=== PATIENT | female | born 1980 | race Caucasian/White ===

== ENCOUNTER 2017-08-22 11:28 | Emergency (ER) | payer BC ==
--- NOTE | 2017-08-22 12:05 | EDM.PDOC ---
ED HPI GENERAL MEDICAL PROBLEM - General Chief Complaint: Cardiovascular Problem Stated Complaint: DIZZINESS/HIGH BLOOD PRESSURE Time Seen by Provider: 08/22/17 12:03 Source of Information: Reports: Patient History Limitations: Reports: No Limitations - History of Present Illness INITIAL COMMENTS - FREE TEXT/NARRATIVE: Patient is a 28-year-old female presents ED complaining of elevated blood pressure, vertigo, sinus congestion, sinus pressure, and intermittent headaches. Patient states she has a history of seasonal allergies and notes that she expresses sinus congestion, pressure, runny nose, daily. This morning upon awakening she felt dizzy with the sensation of the room spinning with movement of her head from left to right. Again this is intermittent comes and goes. She did check her blood pressure that was elevated. This prompted evaluation in the ED for the above symptoms. She states yesterday she had intermittent headache located on the right side that is since relief. This has all started since having the Mirena placed. Of note she's been having early menstrual cramping and also spotting consistent with having her period approximately one week early. There is no chance of being . Imuran I was placed August 08. She was evaluated by primary care provider earlier this month and placed on azithromycin for sinus congestion concerning for sinusitis. She had no significant improvements. Although symptoms have not worsened. She denies any hearing loss, balance issues, being , fever, chills, sore throat, chest pain, shortness of breath, palpitations, and/or focal neurological deficits. She denies heavy vaginal bleeding. PMH: depression, anemia Current medications: lexipro and iron. 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 ED EXAM, GENERAL - Physical Exam Exam: See Below Exam Limited By: No Limitations General Appearance: Alert, WD/WN, No Apparent Distress Eye Exam: Bilateral Eye: EOMI, Normal Inspection, Nystagmus (none noted), PERRL Ears: Normal External Exam, Normal Canal, Hearing Grossly Normal, Normal TMs Nose: Normal Inspection Throat/Mouth: Normal Inspection, Normal Oropharynx, Normal Voice, No Airway Compromise Head: Atraumatic, Normocephalic Neck: Normal Inspection, Supple, Non-Tender, Full Range of Motion Respiratory/Chest: No Respiratory Distress, Lungs Clear, Normal Breath Sounds, No Accessory Muscle Use Cardiovascular: Normal Peripheral Pulses, Regular Rate, Rhythm, No Murmur Peripheral Pulses: 4+: Radial (L), Radial (R) GI/Abdominal: Normal Bowel Sounds, Soft, Non-Tender, No Organomegaly, No Distention Extremities: Normal Inspection, Normal Range of Motion, Non-Tender Neurological: Alert, Oriented, CN II-XII Intact, Normal Cognition, No Motor/ Sensory Deficits, Other (No facial droop, slurred speech, tongue deviation, pronator drift, and or nystagmus. No weakness discrepancies to the upper/lower extremities. Cerebellar fx intact: finger to nose, rapid alternating movements, and heal to devi. ) Psychiatric: Normal Affect, Normal Mood Skin Exam: Warm, Dry, Intact, Normal Color Course - Vital Signs Last Recorded V/S: Last Vital Signs Temp 97.4 F 08/22/17 11:33 Pulse 94 08/22/17 11:33 Resp 18 08/22/17 11:33 BP 162/105 H 08/22/17 11:33 Pulse Ox 100 08/22/17 11:33 - Orders/Labs/Meds Meds: Medications Discontinued Medications Generic Name Dose Route Start Last Admin Trade Name Freq PRN Reason Stop Dose Admin Meclizine HCl 12.5 mg 08/22/17 12:23 08/22/17 12:40 Antivert PO 08/22/17 12:24 12.5 mg ONETIME ONE Administration Ondansetron HCl 4 mg 08/22/17 12:23 08/22/17 12:40 Zofran Odt PO 08/22/17 12:24 4 mg ONETIME ONE Administration - Re-Assessments/Exams Free Text/Narrative Re-Assessment/Exam: On examination patient had slight dizziness/room spinning sensation with movement of the head from left to right. More so associated with movement to the right. She has no nystagumas. Neurologically she is intact with no concerning findings. Of note she's had chronic congestion 2nd to seasonal allergies. I do not believe she has bacterial sinusitis. Treatment will consist of meclizine 12.5mg PO and zofran 4 mg ODT here in the E.D. Will discharge her home with a prescription for these two medications. In addition I have instructed her to take claritan D 10 mg 1 tab everyday. Start using flonase 1 spray to each nare twice a day. Nasal saline spray to each nare as needed for sinus congestion. In addition BP was elevated with admission to the ED. Patient has no diagnosis of HTN. States commonly elevated with evaluation in the clinic and ER. Followup with PCP the end of this week or first part of next week. Return to the E.D. for any new or worsening symptoms. Departure - Departure Time of Disposition: 13:00 Disposition: Home, Self-Care 01 Condition: Good Clinical Impression: Vertigo, Seasonal allergies, Sinus congestion Hypertension Qualifiers: Hypertension type: unspecified Qualified Code(s): I10 - Essential (primary) hypertension Prescriptions: Meclizine [Antivert] 25 mg PO TID PRN #15 tab PRN Reason: Dizziness Ondansetron [Zofran ODT] 4 mg PO Q6H PRN #12 tab.dis PRN Reason: Nausea/Vomiting Instructions: Vertigo, [id number], Dizziness Forms: ED Department Discharge Additional Instructions: Take claritan D 10 mg 1 tab everyday. Start using flonase 1 spray to each nare twice a day. Nasal saline spray to each nare as needed for sinus congestion. In addition BP was elevated with admission to the E/D. Followup with PCP the end of this week or first part of next week for reevaluation. Call and make an appt. Take meclizine 12.5 to 25mg TID as needed for vertigo. Do not drive while taking the meclizine due to sedative side effects. Return to the E.D. for any new or worsening symptoms. Check your blood pressure every other day at different times during the day. Allow yourself approximately 15 minutes to relax prior to taking. Do not take if in pain, with increased anxiety, or just had exercised. Keep a log with the blood pressure readings. Take your blood pressure machine and log with you to your next appointment with PCP to ensure blood pressure machine is calibrated appropriately.
[2017-08-22] MEDS ORDERED: Ondansetron 4 MG Tab.DIS PO ONE (12:23)
[2017-08-22] MEDS ORDERED: Meclizine 12.5 MG Tab PO ONE (12:23)
== END 2017-08-22 13:30 | disposition home or self-care (01) ==
LOC: JD.ED 11:28
DX: R42 Dizziness and giddiness (principal); J30.2 Other seasonal allergic rhinitis; I10 Essential (primary) hypertension; R09.89 Other specified symptoms and signs involving the circulatory and respiratory systems; Z88.2 Allergy status to sulfonamides; Z79.899 Other long term (current) drug therapy
CPT/HCPCS: 99284; A9270; 99283

== ENCOUNTER 2018-08-22 18:25 | Emergency (ER) | payer BC ==
--- NOTE | 2018-08-22 19:51 | EDM.PDOC ---
ED HPI GENERAL MEDICAL PROBLEM <Darleen Fairbanks - Last Filed: 08/23/18 10:38> - General Source of Information: Reports: Patient History Limitations: Reports: No Limitations - History of Present Illness Onset: Today Onset Date: 08/22/18 Onset Time: 17:45 Duration: Hour(s):, Other (Not aware of any bleeding per vagina since gush of blood occurred at about 1745 hrs. tonight.) Location: Reports: Other (Gush of blood per vagina at about 1745 hrs. followed by mild lower abdominal cramping pain.) Quality: Reports: Other (Superpubic tenderness and cramping) Severity: Mild Improves with: Reports: None Worsens with: Reports: None Context: Denies: Activity, Exercise, Lifting, Sick Contact, Trauma, Other Associated Symptoms: Reports: No Other Symptoms, Other. 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 tonight. Patient is known to be with estimated last menstrual period to be around May 24. However 2 ultrasounds have been performed in the month of June that identified a gestation to be younger than that. Present she is estimated to be 10 weeks . She reports that she had mild suprapubic tenderness and urinary frequency on Tuesday, August 19. She has had spotting during the twice 30 July 29 and August 05. The second time she realized constipation seems to be part of the cause of the problem. Patient has not yet seen Dr. Víctor rivas but has an appointment scheduled for i.e. 2 days time. She does have mild suprapubic cramping at this time. Ultrasound on July 17 suggested possible empty gestational sac with a aguillon also evident. This suggested she may have had a twin gestation ,one of which may have failed. Patient reports spotting during with her 10-year-old female at home. She's had 2 male children since that time. All vaginal deliveries. 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: Reports: : 4 Para: 3 (All 3 were vaginal deliveries without complication) Other ASSEMBLER ADJUSTER History: Musculoskeletal History: Reports: None Neurological History: Reports: Migraines Psychiatric History: Reports: Depression Endocrine/Metabolic History: Reports: None Hematologic History: Reports: Anemia Immunologic History: Reports: None Oncologic (Cancer) History: Reports: None Dermatologic History: Reports: Other (See Below) Other Dermatologic History: acne - Infectious Disease History Infectious Disease History: Reports: None - Past Surgical History HEENT Surgical History: Reports: Adenoidectomy, Oral Surgery, Tonsillectomy <Mj Alvarado - Last Filed: 08/23/18 19:30> Social & Family History - Family History Family Medical History: Noncontributory Cardiac: Reports: High Cholesterol, Hypertension, Other (See Below) Other Cardiac Family History: PAD Oncologic: Reports: Other (See Below) Other Oncologic Family History: Melanoma - Tobacco Use Smoking Status *Q: Never Smoker - Caffeine Use Caffeine Use: Reports: Coffee, Soda - Recreational Drug Use Recreational Drug Use: No - Living Situation & Occupation Living situation: Reports: Occupation: Employed <Mj Alvarado - Last Filed: 08/23/18 19:30> ED ROS GENERAL - Review of Systems Review Of Systems: See Below Constitutional: Reports: Fatigue (From .). Denies: Fever, Chills, Malaise HEENT: Reports: No Symptoms Respiratory: Reports: No Symptoms Cardiovascular: Reports: No Symptoms Endocrine: Reports: Fatigue GI/Abdominal: Reports: Constipation (Acid constipation issues during the .) : Reports: Other (Has had some spotting per vagina July 29 and August 05. Heavy gush of blood per vagina tonight. Known to be with estimated gestational age of 10 weeks by previous ultrasounds.) Musculoskeletal: Reports: No Symptoms Skin: Reports: No Symptoms Neurological: Reports: No Symptoms Psychiatric: Reports: No Symptoms Hematologic/Lymphatic: Reports: No Symptoms Immunologic: Reports: No Symptoms <Mj Alvarado - Last Filed: 08/23/18 19:30> ED EXAM - Physical Exam Exam: See Below Exam Limited By: No Limitations General Appearance: Alert, WD/WN, Anxious (Mildly anxious), Mild Distress Eye Exam: Bilateral Eye: Normal Inspection Respiratory/Chest: No Respiratory Distress, Lungs Clear, Normal Breath Sounds, No Accessory Muscle Use Cardiovascular: Normal Peripheral Pulses, Regular Rate, Rhythm, No Edema, No Gallop, No Murmur, No Rub GI/Abdominal Exam: Normal Bowel Sounds, Soft, No Organomegaly, Pelvis Stable, Tender (Mild tenderness to palpation suprapubically. Uterine fundus is not palpable abdominally.), Other (Mildly obese.) (Female) Exam: Normal External Exam, Enlarged Uterus, Uterine Tenderness ( Mild uterine tenderness appreciated anteriorly.), Other (Patient has a mild ectropion of the cervix particularly noted from 9:00 to 3 o'clock position. Excess water was slight oozing of blood per cervical loss. Bimanual examination confirms a cervical os to be closed and the uterus does feel approximate 10 weeks gestation.). No: Cervical Dilatation Back Exam: Normal Inspection, Full Range of Motion. No: CVA Tenderness (L), CVA Tenderness (R) Extremities: Normal Inspection, Normal Range of Motion, Non-Tender, No Pedal Edema Neurological: Alert, Oriented, CN II-XII Intact, Normal Cognition Psychiatric: Normal Mood, Anxious (Mildly anxious.) Skin Exam: Warm, Dry, Intact, Normal Color, No Rash <Mj Alvarado - Last Filed: 08/23/18 19:30> Course <Darleen Fairbanks - Last Filed: 08/23/18 10:38> <Mj Alvarado - Last Filed: 08/23/18 19:30> - Vital Signs Last Recorded V/S: Last Vital Signs Temp 37.1 C 08/22/18 18:51 Pulse 95 08/22/18 18:51 Resp 16 08/22/18 18:51 BP 170/97 H 08/22/18 18:51 Pulse Ox 99 08/22/18 18:51 - Orders/Labs/Meds Labs: Laboratory Tests 08/22/18 08/22/18 08/22/18 Range/Units 20:01 20:01 20:01 WBC 14.73 H (3.98-10.04) K/mm3 RBC 4.74 (3.98-5.22) M/mm3 Hgb 12.0 (11.2-15.7) gm/L Hct 36.8 (34.1-44.9) % MCV 77.6 L (79.4-94.8) fl MCH 25.3 L (25.6-32.2) pg MCHC 32.6 (32.2-35.5) g/dl RDW Std Deviation 51.4 H (36.4-46.3) fL Plt Count 325 (182-369) K/mm3 MPV 10.6 (9.4-12.3) fl Neutrophils % (Manual) 69 H (40-60) % Band Neutrophils % 0 (0-10) % Lymphocytes % (Manual) 25 (20-40) % Atypical Lymphs % 0 % Monocytes % (Manual) 4 (2-10) % Eosinophils % (Manual) 2 (0.7-5.8) % Basophils % (Manual) 0 L (0.1-1.2) Toxic Granulation Few Platelet Estimate Adequate Plt Morphology Comment Normal Anisocytosis 2+ moderate RBC Morph Comment Not Reportable Sodium 138 (136-145) mEq/L Potassium 3.5 (3.5-5.1) mEq/L Chloride 102 (98-107) mEq/L Carbon Dioxide 24 (21-32) mEq/L Anion Gap 15.5 H (5-15) BUN 8 (7-18) mg/dL Creatinine 0.5 L (0.55-1.02) mg/dL Est Cr Clr Drug Dosing 146.90 mL/min Estimated GFR (MDRD) > 60 (>60) mL/min BUN/Creatinine Ratio 16.0 (14-18) Glucose 108 H (74-106) mg/dL Calcium 10.0 (8.5-10.1) mg/dL Total Bilirubin 0.3 (0.2-1.0) mg/dL AST 11 L (15-37) U/L ALT 14 (14-59) U/L Alkaline Phosphatase 66 (46-116) U/L Total Protein 6.9 (6.4-8.2) g/dl Albumin 3.0 L (3.4-5.0) g/dl Globulin 3.9 gm/dL Albumin/Globulin Ratio 0.8 L (1-2) HCG, Quant 015102.0 mIU/mL Urine Color (Yellow) Urine Appearance (Clear) Urine pH (5.0-8.0) Ur Specific [place] (1.005-1.030) Urine Protein (Negative) Urine Glucose (UA) (Negative) Urine Ketones (Negative) Urine Occult Blood (Negative) Urine Nitrite (Negative) Urine Bilirubin (Negative) Urine Urobilinogen (0.2-1.0) Ur Leukocyte Esterase (Negative) Urine RBC (0-5) /hpf Urine WBC (0-5) /hpf Ur Squamous Epith Cells (0-5) /hpf Urine Bacteria (FEW) /hpf Urine Mucus (FEW) /hpf Blood Type A POSITIVE Gel Antibody Screen Negative 08/22/18 Range/Units 20:10 WBC (3.98-10.04) K/mm3 RBC (3.98-5.22) M/mm3 Hgb (11.2-15.7) gm/L Hct (34.1-44.9) % MCV (79.4-94.8) fl MCH (25.6-32.2) pg MCHC (32.2-35.5) g/dl RDW Std Deviation (36.4-46.3) fL Plt Count (182-369) K/mm3 MPV (9.4-12.3) fl Neutrophils % (Manual) (40-60) % Band Neutrophils % (0-10) % Lymphocytes % (Manual) (20-40) % Atypical Lymphs % % Monocytes % (Manual) (2-10) % Eosinophils % (Manual) (0.7-5.8) % Basophils % (Manual) (0.1-1.2) Toxic Granulation Platelet Estimate Plt Morphology Comment Anisocytosis RBC Morph Comment Sodium (136-145) mEq/L Potassium (3.5-5.1) mEq/L Chloride (98-107) mEq/L Carbon Dioxide (21-32) mEq/L Anion Gap (5-15) BUN (7-18) mg/dL Creatinine (0.55-1.02) mg/dL Est Cr Clr Drug Dosing mL/min Estimated GFR (MDRD) (>60) mL/min BUN/Creatinine Ratio (14-18) Glucose (74-106) mg/dL Calcium (8.5-10.1) mg/dL Total Bilirubin (0.2-1.0) mg/dL AST (15-37) U/L ALT (14-59) U/L Alkaline Phosphatase (46-116) U/L Total Protein (6.4-8.2) g/dl Albumin (3.4-5.0) g/dl Globulin gm/dL Albumin/Globulin Ratio (1-2) HCG, Quant mIU/mL Urine Color Light yellow (Yellow) Urine Appearance Clear (Clear) Urine pH 6.5 (5.0-8.0) Ur Specific [place] 1.025 (1.005-1.030) Urine Protein Negative (Negative) Urine Glucose (UA) Negative (Negative) Urine Ketones Negative (Negative) Urine Occult Blood 2+ H (Negative) Urine Nitrite Negative (Negative) Urine Bilirubin Negative (Negative) Urine Urobilinogen 0.2 (0.2-1.0) Ur Leukocyte Esterase Negative (Negative) Urine RBC 5-10 H (0-5) /hpf Urine WBC Not seen (0-5) /hpf Ur Squamous Epith Cells 0-5 (0-5) /hpf Urine Bacteria Not seen (FEW) /hpf Urine Mucus Not seen (FEW) /hpf Blood Type Gel Antibody Screen - Radiology Interpretation Free Text/Narrative:: 37-year-old female is as to the ED after expressing a gush of blood per vagina suddenly about 1745 hrs. tonight. She is known to be approximately 10 weeks according to ultrasounds done in the past month of June. Patient is 4 para 3 with all 3 normal vaginal deliveries. And has had some intermittent spotting during this July 29 and August 05. Complicated by some constipation issues. She has diffuse lower abdominal discomfort suprapubically since Tuesday, August 19. Perhaps slightly increased urinary frequency but no dysuria. Still having some problems with constipation. Benign abdominal examination although she is tender suprapubically on exam. Plan urinalysis empty her bladder. I will inspect the cervix with speculum and performed bimanual examination showed the cervix is closed. She will have routine labs performed including quantitative beta-hCG. Also type and screen. Transvaginal ultrasound will be carried out. (Mj Alvarado) - Re-Assessments/Exams Free Text/Narrative Re-Assessment/Exam: 08/22/18 20:20: Speculum exam shows a mild ectropion of the cervix at the 9:00 to 3 o'clock position. There is no bleeding however from this area and I swabbed the cervix. There is slight oozing of older type blood per cervical os. Bimanual exam reveals the cervical os is closed and the uterus does feel 10 weeks in size. Plan ultrasound to be done to confirm viability. Care will be transferred to ISAIAS Fairbanks as I am not going off shift. 08/22/18 20:41 Lab work reveals an elevated white count at 14.73. Differential is pending. Hemoglobin is 12.0 with hematocrit of 36.8. MCV is a little on the low side at 77.6 suggesting some iron deficiency. Platelet count 325,000. Sodium 138 with potassium low-normal at 3.5. Chloride 102 with a bicarbonate 24. And a gap is 15.5. BUN is 8 with a creatinine of 0.5. Assessment EGFR is greater than 60. Glucose is 108. Calcium is 10.0. Liver function normal. Total protein slightly low at 6.9 with an albumin fraction low at 3.0. 08/22/18 20:20: Quantitative beta-hCG is greater than 111,000 work should be. Blood type is a positive with no antibodies. The ultrasound on my assessment reveals a aguillon fetus with heart rate of 171 bpm. [place]-rump rump length and head circumference correlates with 12 weeks 0 days. This would make her due date March 06, 2019. There does seem to be a empty gestational sac in the uterus about with a blighted ovum and possibility of a twin gestation. There appears to be a fairly large fibroid that does encroach upon the intrauterine cavity but no signs of bleeding around this. Will have Darleen Fairbanks -- ISAIAS follow up with patient after radiologist reads the U/S. I am leaving the department as it is change of shift. (Mj Alvarado) Free Text/Narrative Re-Assessment/Exam: 08/22/18 22:12 First trimester obstetrical ultrasound: Multiple real-time images were obtained transvaginally. Comparison: No previous study is available. Dates: Current ultrasound: CARMELLA 03/06/19, gestational age 12 weeks 0 days Single intrauterine gestation is seen. Embryo and yolk sac are seen. Small cystic area is seen either due to resolving nonviable second gestational sac versus small subchorionic hemorrhage. Uterine fibroid is seen measuring 3.2 x 2.8 x 2.5 cm. Left maternal ovary shows a simple cyst measuring up to 2.8 cm most likely representing corpus luteum cyst. Right ovary shows a small hypoechoic area most likely due to small collapsing hemorrhagic cyst measuring 1.7 cm. Measurements: [place]-rump length: 5.25 cm - 12 weeks 0 days Heart rate: 171 BPM Impression: 1. Single intrauterine gestation. Findings which are most likely incidental as described above. 2. No etiology is seen for the patient's bleeding. Reviewed the ultrasound results with the patient. Her blood type is A+. We will discharge her home tonight. Follow-up with OB as planned. Please return to the ER symptoms change or worsen. (Darleen Fairbanks) Departure - Departure Time of Disposition: 22:13 Condition: Good - Discharge Information *PRESCRIPTION DRUG MONITORING PROGRAM REVIEWED*: No *COPY OF PRESCRIPTION DRUG MONITORING REPORT IN PATIENT NUNU: No <Darleen Fairbanks - Last Filed: 08/23/18 10:38> <Mj Alvarado - Last Filed: 08/23/18 19:30> - Departure Disposition: Home, Self-Care 01 Clinical Impression: Threatened , - Discharge Information Instructions: Threatened Miscarriage, [id number] Referrals: Emma Decker MD [Primary Care Provider] - Dulce Renee MD [Physician] - Forms: ED Department Discharge Additional Instructions: Nothing vaginally until cleared by all the, no intercourse. Follow-up with your OB as planned. Make sure you are drinking plenty of fluids. [id number] Tylenol as needed for pain. Please return to the ER for symptoms change or worsen. In particular if you are soaking through more than 1 pad an hour, feeling lightheaded or any passing out.
--- NOTE | 2018-08-22 21:19 | US ---
First trimester obstetrical ultrasound: Multiple real-time images were obtained transvaginally. Comparison: No previous study is available. Dates: Current ultrasound: CARMELLA 03/06/19, gestational age 12 weeks 0 days Single intrauterine gestation is seen. Embryo and yolk sac are seen. Small cystic area is seen either due to resolving nonviable second gestational sac versus small subchorionic hemorrhage. Uterine fibroid is seen measuring 3.2 x 2.8 x 2.5 cm. Left maternal ovary shows a simple cyst measuring up to 2.8 cm most likely representing corpus luteum cyst. Right ovary shows a small hypoechoic area most likely due to small collapsing hemorrhagic cyst measuring 1.7 cm. Measurements: [place]-rump length: 5.25 cm - 12 weeks 0 days Heart rate: 171 BPM Impression: 1. Single intrauterine gestation. Findings which are most likely incidental as described above. 2. No etiology is seen for the patient's bleeding. Diagnostic code #2
== END 2018-08-22 22:21 | disposition home or self-care (01) ==
LOC: JD.ED 18:25
DX: O20.0 Threatened abortion (principal); O10.911 Unspecified pre-existing hypertension complicating pregnancy, first trimester; O99.511 Diseases of the respiratory system complicating pregnancy, first trimester; J45.909 Unspecified asthma, uncomplicated; Z3A.10 10 weeks gestation of pregnancy; Z88.2 Allergy status to sulfonamides; Z79.899 Other long term (current) drug therapy
CPT/HCPCS: 36415; 76817; 76817-26; 80053; 81001; 84702; 85007; 85027; 86850; 86900; 86901; 99283; 99284-25

== ENCOUNTER 2019-02-17 14:00 | Inpatient (IN) | payer BC ==
[2019-02-17] MEDS ORDERED: Lactated Ringers 1,000 ML IV ONE (16:35)
--- NOTE | 2019-02-17 19:57 | PCM.LDHP ---
L&D History of Present Illness - General Date of Service: 02/17/19 Admit Problem/Dx: Patient Status Order with Admit Dx/Problem 02/17/19 14:15 Patient Status [ADT] Routine Admission Diagnosis/Problem Admission Diagnosis/Problem Source of Information: Patient History Limitations: Reports: No Limitations - History of Present Illness Introduction:: Sophie Reyes is a 38-year-old -0-0-3 at 36 weeks 5 days (CAR[facility] 03/12/2019) by 7 -week ultrasound who is undergoing medically indicated induction of labor due to low biophysical profile score of 4/10 with points taken off for movement, tone and breathing. There was a normal ERNIE of 11.07 cm. Patient had reported that she was not feeling baby move very much throughout the day today. She had to come in for IV gentamicin due to multidrug-resistant urinary tract infection. Today was her last day of antibiotics. She denied any headaches, vision changes or epigastric pain. She had been monitored by her regular physician, Dr. Renee, for her blood pressures as an outpatient and was diagnosed with gestational hypertension. She was scheduled for induction of labor on 02/19/2019 due to her gestational hypertension. She reports that she has been having some irregular contractions throughout the day today but denies any regularity or significant pain with the contractions. Denies any leaking of fluid or vaginal bleeding. While evaluated on labor and delivery she was noted to have elevated blood pressures and had labs performed that showed increased urine protein/creatinine ratio of 3.3 which would be consistent with preeclampsia without severe features. The remainder of her labs were normal. Associated Symptoms: Denies: vaginal bleeding, vaginal discharge, vaginal fluid Present Illness Comments:: Sophie Reyes is a 38 year old -0-0-3 at 36 weeks 5 days by a 7-week ultrasound who presented for IV infusion of gentamicin for treatment of her urinary tract infection as was recommended by her regular provider, Dr. Renee. On presentation to labor and delivery she noted that she was not feeling the baby move much throughout the day today and on monitoring was noted to have several decelerations with 1 suspected late deceleration. She did have a reactive NST despite these decelerations. She underwent biophysical profile because of the decelerations that she was having for additional reassurance of wellbeing and was noted to have a full biophysical profile score of 4/10 with points being taken off for lack of movement, tone and breathing. She had a normal ERNIE of 11.07 cm. Decision was made to proceed with induction of labor and she agreed to this. Patient had routine care with Dr. Renee. She was diagnosed with gestational hypertension at 35 weeks gestational age. She was diagnosed with a urinary tract infection requiring IV antibiotics on 02/09/2019 she received betamethasone for lung maturity on 02/15/2019 and 02/16/2019. Her has been complicated by: * Gestational hypertension diagnosed at 35 weeks gestational age * Urinary tract infection requiring IV antibiotics for treatment * History of depression and was on Lexapro prior to . 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/08/2005, at 39 weeks 4 days, weight 7 pounds 1 ounce, epidural for anesthesia, no complications G2: 05/24/2008, at 39 weeks 3 days, weight 8 pounds 1 ounce, epidural for anesthesia, no complications G3: 04/28/2011, at 39 weeks 5 days, weight 7 pounds 13 ounces, no complications G4: Current labs Blood type: A+ Antibody screen: Negative First trimester hematocrit/hemoglobin: 40.6%/13.4 on 08/24/2018 Platelets: 311 on 08/24/2018 Rubella status: Immune Hepatitis B surface antigen: Negative RPR: Negative HIV: Negative One hour glucose tolerance test: 122 Second trimester hemoglobin: 11.6 on 11/21/2018 Platelets: 284 11/21/2018 GBS status: Negative - Related Data Allergies/Adverse Reactions: Allergies Allergy/AdvReac Type Severity Reaction Status Date / Time Sulfa (Sulfonamide AdvReac Stomach Verified 02/15/19 18:41 Antibiotics) Upset Home Medications: Home Meds Montelukast [Singulair] 10 mg PO DAILY 08/22/18 [History] Pnv No.103/Folic/Om3s/Fish Oil [ Gummies] 2 tab PO DAILY 08/22/18 [ History] Lansoprazole [Prevacid] 15 mg PO DAILY 02/15/19 [History] Past Medical History HEENT History: Reports: Impaired Vision Cardiovascular History: Reports: Hypertension Respiratory History: Reports: Asthma Gastrointestinal History: Reports: None Genitourinary History: Reports: UTI, Recurrent 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: : 4 Para: 3 Other OB/BYN History: Musculoskeletal History: Reports: None Neurological History: Reports: Migraines Psychiatric History: Reports: Depression Endocrine/Metabolic History: Reports: None Hematologic History: Reports: Anemia Immunologic History: Reports: None Oncologic (Cancer) History: Reports: None Dermatologic History: Reports: Other (See Below) Other Dermatologic History: acne - Infectious Disease History Infectious Disease History: Reports: None - Past Surgical History HEENT Surgical History: Reports: Adenoidectomy, Oral Surgery, Tonsillectomy Social & Family History - Family History Family Medical History: Noncontributory Cardiac: Reports: High Cholesterol, Hypertension, Other (See Below) Other Cardiac Family History: PAD Oncologic: Reports: Other (See Below) Other Oncologic Family History: Melanoma - Tobacco Use Smoking Status *Q: Never Smoker Tobacco Use Within Last Twelve Months: No - Tobacco Core Measures Tobacco Use/Smoking Within Last 30 Days: No Smokeless Tobacco Use in Last 30 Days: No - Caffeine Use Caffeine Use: Reports: Coffee, Soda - Alcohol Use Alcohol Use History: No - Recreational Drug Use Recreational Drug Use: No Drug Use in Last 12 Months: No - Living Situation & Occupation Living situation: Reports: , with Significant Other, with Family Occupation: Employed H&P Review of Systems - Review of Systems: Review Of Systems: See Below General: Reports: Chills. Denies: Fever, Malaise, Weakness, Fatigue HEENT: Denies: Eye Pain, Headaches, Post Nasal Drip, Sinus Congestion, Sore Throat, Visual Changes Pulmonary: Denies: Shortness of Breath, Wheezing, Pleuritic Chest Pain, Cough Cardiovascular: Denies: Chest Pain, Palpitations, Dyspnea on Exertion, Orthopnea Gastrointestinal: Reports: Constipation. Denies: Abdominal Pain, Diarrhea, Nausea, Vomiting Genitourinary: Denies: Dysuria, Frequency, Burning, Pain, Urgency Musculoskeletal: Reports: Back Pain (and hip pain of ) Skin: Denies: Rash, Lesions Psychiatric: Denies: Depression, Anxiety Neurological: Denies: Headache L&D Exam - Exam Exam: See Below - Vital Signs Vital Signs: Last Vital Signs Temp 36.3 C 02/17/19 14:35 Pulse 92 02/17/19 17:01 Resp 16 02/17/19 14:35 BP 156/89 H 02/17/19 17:01 Pulse Ox 100 02/17/19 14:35 Weight: 112.037 kg - OB Specific Contraction Duration (sec): 60-120 Contraction Frequency (min): Irregular Contraction Intensity: Mild Movement: Active Heart Tones: Present Heart Tones per Min: 150 (+15 x 15 accelerations, intermittent late decelerations) Heart Rate (FHR) Variability: Moderate (6-25 bmp) Presentation: Vertex Estimated Weight: 7 pounds 3 ounces by ultrasound - Fraire Score Fraire Score Cervix Position: Anterior Fraire Score Consistency: Medium Fraire Score Effacement: 31-50% (50%) Fraire Score Dilation: 3-4 cm (3 cm) Fraire Score 's Station: -3 (-4) Frarie Score Total: 6 - Exam General: Alert, Oriented HEENT: Conjunctiva Clear, EOMI Neck: Supple, Trachea Midline Lungs: Clear to Auscultation, Normal Respiratory Effort Cardiovascular: Regular Rate, Regular Rhythm GI/Abdominal Exam: Soft, Non-Tender, No Distention, Other (Gravid). No: Guarding, Rigid, Rebound Genitourinary: Normal external exam, Other (16 Haitian Ibarra bulb placed through the cervix manually and filled with 50 mL of sterile saline. Mother and tolerated procedure without difficulty.) Extremities: Normal Inspection, Non-Tender, Pedal Edema (1+ in bilateral lower extremities to knees) Skin: Warm, Dry, Intact Psychiatric: Alert, Normal Affect, Normal Mood - Patient Data Lab Results Last 24 hrs: Laboratory Results - last 24 hr 02/17/19 02/17/19 02/17/19 Range/Units 16:20 16:20 18:15 WBC 15.97 H (3.98-10.04) K/mm3 RBC 3.97 L (3.98-5.22) M/mm3 Hgb 10.9 L (11.2-15.7) gm/dl Hct 33.7 L (34.1-44.9) % MCV 84.9 D (79.4-94.8) fl MCH 27.5 (25.6-32.2) pg MCHC 32.3 (32.2-35.5) g/dl RDW Std Deviation 44.0 (36.4-46.3) fL Plt Count 320 (182-369) K/mm3 MPV 11.2 (9.4-12.3) fl Neut % (Auto) 71.7 H (34.0-71.1) % Lymph % (Auto) 17.7 L (19.3-51.7) % [place] % (Auto) 9.3 (4.7-12.5) % Eos % (Auto) 0.1 L (0.7-5.8) Baso % (Auto) 0.1 (0.1-1.2) % Neut # (Auto) 11.46 H (1.56-6.13) K/mm3 Lymph # (Auto) 2.82 (1.18-3.74) K/mm3 [place] # (Auto) 1.49 H (0.24-0.36) K/mm3 Eos # (Auto) 0.01 L (0.04-0.36) K/mm3 Baso # (Auto) 0.02 (0.01-0.08) K/mm3 Manual Slide Review Abnormal smear Sodium 143 (136-145) mEq/L Potassium 3.1 L (3.5-5.1) mEq/L Chloride 105 (98-107) mEq/L Carbon Dioxide 25 (21-32) mEq/L Anion Gap 16.1 H (5-15) BUN 13 (7-18) mg/dL Creatinine 0.6 (0.55-1.02) mg/dL Est Cr Clr Drug Dosing 121.20 mL/min Estimated GFR (MDRD) > 60 (>60) mL/min BUN/Creatinine Ratio 21.7 H (14-18) Glucose 117 H (74-106) mg/dL Calcium 8.7 (8.5-10.1) mg/dL Total Bilirubin 0.5 (0.2-1.0) mg/dL AST 13 L (15-37) U/L ALT 15 (14-59) U/L Alkaline Phosphatase 118 H (46-116) U/L Total Protein 6.5 (6.4-8.2) g/dl Albumin 2.8 L (3.4-5.0) g/dl Globulin 3.7 gm/dL Albumin/Globulin Ratio 0.8 L (1-2) Ur Random Creatinine 95.8 (30.0-125.0) mg/dL U Random Total Protein 357.6 H (0.0-11.8) mg/dL Protein/Creatinin Ratio 3732.8 H (0-149) mg/g Result Diagrams: 02/17/19 16:20 02/17/19 16:20 - Problem List (1) 36 weeks gestation of SNOMED Code(s): 36697947 ICD Code: Z3A.36 - 36 WEEKS GESTATION OF Status: Acute Current Visit: Yes (2) Preeclampsia SNOMED Code(s): 783223983 ICD Code: O14.90 - UNSPECIFIED PRE-ECLAMPSIA, UNSPECIFIED TRIMESTER Status : Acute Current Visit: Yes (3) Non-reassuring heart rate with late deceleration SNOMED Code(s): 802144049, 892770864 ICD Code: O36.8390 - MATERN CARE FOR ABNLT FETL HRT RATE OR RHYM, UNSP TRI, UNSP Status: Acute Current Visit: Yes (4) Obesity SNOMED Code(s): 637523771, 307939107 ICD Code: E66.9 - OBESITY, UNSPECIFIED Status: Acute Current Visit: Yes (5) Advanced maternal age in multigravida SNOMED Code(s): 351810318 ICD Code: O09.529 - SUPERVISION OF ELDERLY MULTIGRAVIDA, UNSPECIFIED TRIMESTER Status: Acute Current Visit: Yes Problem List Initiated/Reviewed/Updated: Yes Orders Last 24hrs: Active Orders 24 hr Category Date Time Status Patient Status [ADT] Routine ADT 02/17/19 14:15 Active Non Stress Test [RC] PER UNIT ROUTINE Care 02/17/19 14:35 Active Vital Signs [RC] PER UNIT ROUTINE Care 02/17/19 14:35 Active Regular Diet [DIET] Diet 02/17/19 Dinner Active BPP wo NST [US] Routine Exams 02/17/19 16:34 Taken Gentamicin 410 mg Med 02/17/19 15:00 Active Sodium Chloride 0.9% [Normal Saline] 100 ml IV Q24H Pharmacy to Dose - Gentamicin Med 02/17/19 14:45 Pending 1 dose .XX ASDIRECTED Resuscitation Status Routine Resus Stat 02/17/19 14:35 Ordered Medication Orders Gentamicin Sulfate (Pharmacy To Dose - Gentamicin) 1 dose .XX ASDIRECTED [facility] Gentamicin Sulfate 410 mg/ (Sodium Chloride) 110.25 mls @ 220.5 mls/hr IV Q24H [facility] Last Admin: 02/17/19 15:47 Dose: 220.5 mls/hr Assessment/Plan Comment:: Refer to observation for medically indicated induction of labor for low biophysical profile score of 4/10 in the setting of preeclampsia without severe features Patient had placement of 16 Haitian Ibarra bulb without difficulty filled with 50 mL of sterile saline. Start Pitocin for induction of labor Continuous monitoring Place IV and have Lactated Ringer's at 125 ml/hr May have small amounts of regular diet Activity as tolerated May have epidural as desired Plans to breast-feed after delivery Close monitoring of her blood pressures for severe range blood pressures that may necessitate treatment. Patient may potentially develop other signs or symptoms of severe features of preeclampsia which would necessitate treatment with magnesium. Anticipate vaginal delivery unless otherwise indicated Shravan Hill MD 9:52 PM 02/17/2019
[2019-02-17] MEDS ORDERED: Nalbuphine 10 MG/1 ML Vial IVPUSH PRN (20:24)
[2019-02-17] MEDS ORDERED: Oxytocin/Lactated Ringers 10 UNIT/1,000 ML BAG IV SCH ×2 (20:30)
[2019-02-17] MEDS: Lactated Ringers 1,000 ML IV SCH ×2 (20:50→22:59)
[2019-02-17] MEDS: Pantoprazole 40 MG Tab.CR PO SCH (21:51)
[2019-02-17] MEDS: Montelukast 10 MG Tab PO SCH (21:51)
[2019-02-18] MEDS ORDERED: Bupivacaine 0.25% 10 ML SDV ONE
[2019-02-18] MEDS: Acetaminophen 325 MG Tab PO PRN ×2 (02:22→11:23)
[2019-02-18] MEDS: Lactated Ringers 1,000 ML IV SCH ×4 (02:23→21:02)
[2019-02-18] MEDS ORDERED: fentaNYL/Bupivacaine/NS 2 MCG-0.125% 250 ML EPIDUR PRN (02:55)
[2019-02-18] MEDS ORDERED: fentaNYL 100 MCG/2 ML SDV EPIDUR PRN (02:55)
[2019-02-18] MEDS ORDERED: ePHEDrine 50 MG/ML SDV IVPUSH PRN (02:55)
[2019-02-18] MEDS ORDERED: diphenhydrAMINE 50 MG/ML SDV IVPUSH PRN (02:55)
--- NOTE | 2019-02-18 04:14 | PCM.PREANE ---
Preanesthetic Assessment - Anesthesia/Transfusion/Family Hx Anesthesia History: Prior Anesthesia Without Reaction Family History of Anesthesia Reaction: No Transfusion History: No Prior Transfusion(s) Additional History: Post Dural Puncture Headache with her last epidural - Review of Systems General: Fatigue Pulmonary: No Symptoms Cardiovascular: No Symptoms (Hypertension) Gastrointestinal: Other (GERd) Neurological: Headache, Other (Back pain into hips) Other: Reports: None - Physical Assessment Vital Signs: Last Vital Signs Temp 36.3 C 02/17/19 14:35 Pulse 92 02/17/19 17:01 Resp 16 02/17/19 14:35 BP 156/89 H 02/17/19 17:01 Pulse Ox 100 02/17/19 14:35 Height: 1.7 m Weight: 112.037 kg ASA Class: 2 Mental Status: Alert & Oriented x3 Airway Class: Mallampati = 2 Dentition: Reports: Normal Dentition Thyro-Mental Finger Breadths: 2 Mouth Opening Finger Breadths: 3 ROM/Head Extension: Full Lungs: Clear to Auscultation, Normal Respiratory Effort Cardiovascular: Regular Rate, Regular Rhythm - Lab Values: Laboratory Last Values WBC 15.97 K/mm3 (3.98-10.04) H 02/17/19 16:20 RBC 3.97 M/mm3 (3.98-5.22) L 02/17/19 16:20 Hgb 10.9 gm/dl (11.2-15.7) L 02/17/19 16:20 Hct 33.7 % (34.1-44.9) L 02/17/19 16:20 MCV 84.9 fl (79.4-94.8) D 02/17/19 16:20 MCH 27.5 pg (25.6-32.2) 02/17/19 16:20 MCHC 32.3 g/dl (32.2-35.5) 02/17/19 16:20 RDW Std Deviation 44.0 fL (36.4-46.3) 02/17/19 16:20 Plt Count 320 K/mm3 (182-369) 02/17/19 16:20 MPV 11.2 fl (9.4-12.3) 02/17/19 16:20 Neut % (Auto) 71.7 % (34.0-71.1) H 02/17/19 16:20 Lymph % (Auto) 17.7 % (19.3-51.7) L 02/17/19 16:20 [place] % (Auto) 9.3 % (4.7-12.5) 02/17/19 16:20 Eos % (Auto) 0.1 (0.7-5.8) L 02/17/19 16:20 Baso % (Auto) 0.1 % (0.1-1.2) 02/17/19 16:20 Neut # (Auto) 11.46 K/mm3 (1.56-6.13) H 02/17/19 16:20 Lymph # (Auto) 2.82 K/mm3 (1.18-3.74) 02/17/19 16:20 [place] # (Auto) 1.49 K/mm3 (0.24-0.36) H 02/17/19 16:20 Eos # (Auto) 0.01 K/mm3 (0.04-0.36) L 02/17/19 16:20 Baso # (Auto) 0.02 K/mm3 (0.01-0.08) 02/17/19 16:20 Manual Slide Review Abnormal smear 02/17/19 16:20 Sodium 143 mEq/L (136-145) 02/17/19 16:20 Potassium 3.1 mEq/L (3.5-5.1) L 02/17/19 16:20 Chloride 105 mEq/L (98-107) 02/17/19 16:20 Carbon Dioxide 25 mEq/L (21-32) 02/17/19 16:20 Anion Gap 16.1 (5-15) H 02/17/19 16:20 BUN 13 mg/dL (7-18) 02/17/19 16:20 Creatinine 0.6 mg/dL (0.55-1.02) 02/17/19 16:20 Est Cr Clr Drug Dosing 121.20 mL/min 02/17/19 16:20 Estimated GFR (MDRD) > 60 mL/min (>60) 02/17/19 16:20 BUN/Creatinine Ratio 21.7 (14-18) H 02/17/19 16:20 Glucose 117 mg/dL (74-106) H 02/17/19 16:20 Calcium 8.7 mg/dL (8.5-10.1) 02/17/19 16:20 Total Bilirubin 0.5 mg/dL (0.2-1.0) 02/17/19 16:20 AST 13 U/L (15-37) L 02/17/19 16:20 ALT 15 U/L (14-59) 02/17/19 16:20 Alkaline Phosphatase 118 U/L (46-116) H 02/17/19 16:20 Total Protein 6.5 g/dl (6.4-8.2) 02/17/19 16:20 Albumin 2.8 g/dl (3.4-5.0) L 02/17/19 16:20 Globulin 3.7 gm/dL 02/17/19 16:20 Albumin/Globulin Ratio 0.8 (1-2) L 02/17/19 16:20 Ur Random Creatinine 95.8 mg/dL (30.0-125.0) 02/17/19 18:15 U Random Total Protein 357.6 mg/dL (0.0-11.8) H 02/17/19 18:15 Protein/Creatinin Ratio 3732.8 mg/g (0-149) H 02/17/19 18:15 Blood Type A POSITIVE 02/17/19 16:20 Gel Antibody Screen Negative 02/17/19 16:20 - Allergies Allergies/Adverse Reactions: Allergies Allergy/AdvReac Type Severity Reaction Status Date / Time Sulfa (Sulfonamide AdvReac Stomach Verified 02/15/19 18:41 Antibiotics) Upset - Acknowledgements Anesthesia Type Planned: Epidural Pt an Appropriate Candidate for the Planned Anesthesia: Yes Alternatives and Risks of Anesthesia Discussed w Pt/Guardian: Yes Pt/Guardian Understands and Agrees with Anesthesia Plan: Yes PreAnesthesia Questionnaire HEENT History: Reports: Impaired Vision Cardiovascular History: Reports: Hypertension Respiratory History: Reports: Asthma Gastrointestinal History: Reports: None Genitourinary History: Reports: UTI, Recurrent 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 OB/BYN History: Musculoskeletal History: Reports: None Neurological History: Reports: Migraines Psychiatric History: Reports: Depression Other Psychiatric History: hx of post depression, 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 after delivery Endocrine/Metabolic History: Reports: None Hematologic History: Reports: Anemia Immunologic History: Reports: None Oncologic (Cancer) History: Reports: None Dermatologic History: Reports: Other (See Below) Other Dermatologic History: acne - Infectious Disease History Infectious Disease History: Reports: None - Past Surgical History HEENT Surgical History: Reports: Adenoidectomy, Oral Surgery, Tonsillectomy - SUBSTANCE USE Smoking Status *Q: Never Smoker Tobacco Use Within Last Twelve Months: No Second Hand Smoke Exposure: No Recreational Drug Use History: No - HOME MEDS Home Medications: Home Meds Montelukast [Singulair] 10 mg PO DAILY 08/22/18 [History] Pnv No.103/Folic/Om3s/Fish Oil [ Gummies] 2 tab PO DAILY 08/22/18 [ History] Lansoprazole [Prevacid] 15 mg PO DAILY 02/15/19 [History] - CURRENT (IN HOUSE) MEDS Current Meds: Current Medications Acetaminophen (Tylenol) 650 mg PO Q6H PRN PRN Reason: Headache/Pain Last Admin: 02/18/19 02:22 Dose: 650 mg Diphenhydramine HCl (Benadryl) 25 mg IVPUSH Q6H PRN PRN Reason: pruritis Ephedrine Sulfate (Ephedrine Sulfate) 5 mg IVPUSH ASDIRECTED PRN PRN Reason: Hypotension Fentanyl (Sublimaze) 100 mcg EPIDUR Q3H PRN PRN Reason: Pain Last Admin: 02/18/19 03:12 Dose: 100 mcg Fentanyl/Bupivacaine HCl (Fentanyl/Bupivacaine/Ns 2 Mcg-0.125% 250 Ml) 250 ml EPIDUR CONTINUOUS PRN PRN Reason: Pain Last Admin: 02/18/19 03:13 Dose: 250 ml Gentamicin Sulfate (Pharmacy To Dose - Gentamicin) 1 dose .XX ASDIRECTED [facility] Gentamicin Sulfate 410 mg/ (Sodium Chloride) 110.25 mls @ 220.5 mls/hr IV Q24H [facility] Last Admin: 02/17/19 15:47 Dose: 220.5 mls/hr Lactated Ringer's (Ringers, Lactated) 1,000 mls @ 100 mls/hr IV ASDIRECTED [place] Last Admin: 02/18/19 03:52 Dose: 100 mls/hr Oxytocin/Lactated Ringer's (Pitocin In Lr 10 Units/1,000 Ml) 10 unit in 1,000 mls @ 12 mls/hr IV TITRATE [facility]; Protocol Last Titration: 02/18/19 01:50 Dose: 12 munits/min, 72 mls/hr Oxytocin/Lactated Ringer's (Pitocin In Lr 10 Units/1,000 Ml) 10 unit in 1,000 mls @ 100 mls/hr IV .CONTINUOUS [place] Montelukast Sodium (Singulair) 10 mg PO BEDTIME [facility] Last Admin: 02/17/19 21:51 Dose: 10 mg Nalbuphine HCl (Nubain) 10 mg IVPUSH Q2H PRN PRN Reason: Pain Pantoprazole Sodium (Protonix) 40 mg PO BEDTIME [facility] Last Admin: 02/17/19 21:51 Dose: 40 mg Discontinued Medications Lactated Ringer's (Ringers, Lactated) 1,000 mls @ 999 mls/hr IV .BOLUS ONE Stop: 02/17/19 17:35 Last Admin: 02/17/19 17:19 Dose: 999 mls/hr
[2019-02-18] MEDS ORDERED: Labetalol 100 MG/20 ML MDV ONE (07:49)
[2019-02-18] MEDS ORDERED: Labetalol 100 MG/20 ML MDV IVPUSH ONE (07:55)
--- NOTE | 2019-02-18 07:58 | PCM.PNLD ---
Labor Progress Note - VS & Meds Vital Signs: Last Vital Signs Temp 36.3 C 02/17/19 14:35 Pulse 92 02/17/19 17:01 Resp 16 02/17/19 14:35 BP 156/89 H 02/17/19 17:01 Pulse Ox 100 02/17/19 14:35 Active Medications: Current Medications Acetaminophen (Tylenol) 650 mg PO Q6H PRN PRN Reason: Headache/Pain Last Admin: 02/18/19 02:22 Dose: 650 mg Diphenhydramine HCl (Benadryl) 25 mg IVPUSH Q6H PRN PRN Reason: pruritis Ephedrine Sulfate (Ephedrine Sulfate) 5 mg IVPUSH ASDIRECTED PRN PRN Reason: Hypotension Fentanyl (Sublimaze) 100 mcg EPIDUR Q3H PRN PRN Reason: Pain Last Admin: 02/18/19 03:12 Dose: 100 mcg Fentanyl/Bupivacaine HCl (Fentanyl/Bupivacaine/Ns 2 Mcg-0.125% 250 Ml) 250 ml EPIDUR CONTINUOUS PRN PRN Reason: Pain Last Admin: 02/18/19 03:13 Dose: 250 ml Gentamicin Sulfate (Pharmacy To Dose - Gentamicin) 1 dose .XX ASDIRECTED [place] Gentamicin Sulfate 410 mg/ (Sodium Chloride) 110.25 mls @ 220.5 mls/hr IV Q24H [facility] Last Admin: 02/17/19 15:47 Dose: 220.5 mls/hr Lactated Ringer's (Ringers, Lactated) 1,000 mls @ 100 mls/hr IV ASDIRECTED [place] Last Admin: 02/18/19 03:52 Dose: 100 mls/hr Oxytocin/Lactated Ringer's (Pitocin In Lr 10 Units/1,000 Ml) 10 unit in 1,000 mls @ 12 mls/hr IV TITRATE [place]; Protocol Last Titration: 02/18/19 05:38 Dose: 18 munits/min, 108 mls/hr Oxytocin/Lactated Ringer's (Pitocin In Lr 10 Units/1,000 Ml) 10 unit in 1,000 mls @ 100 mls/hr IV .CONTINUOUS [place] Montelukast Sodium (Singulair) 10 mg PO BEDTIME [facility] Last Admin: 02/17/19 21:51 Dose: 10 mg Nalbuphine HCl (Nubain) 10 mg IVPUSH Q2H PRN PRN Reason: Pain Pantoprazole Sodium (Protonix) 40 mg PO BEDTIME [facility] Last Admin: 02/17/19 21:51 Dose: 40 mg Discontinued Medications Lactated Ringer's (Ringers, Lactated) 1,000 mls @ 999 mls/hr IV .BOLUS ONE Stop: 02/17/19 17:35 Last Admin: 02/17/19 17:19 Dose: 999 mls/hr - Uterine Contractions Uterine Monitoring Mode: External [place] Contraction Frequency (min): 2-3 Contraction Duration (sec): 60 Contraction Intensity: Moderate to Strong Uterine Resting Tone: Soft - Monitoring Monitor Mode: Doppler/Auscultation Heart Rate (FHR) Baseline: 140 Heart Rate (FHR) Per Doppler: 140 Heart Rate (FHR) Variability: Moderate (6-25 bmp) Accelerations: Present, 15x15 Decelerations: Variable, Intermittent (<50% x 20 min) Strip Review: Category II - Vaginal Exam Dilation (cm): 5 Effacement (Percent): 80 Station: -2 Cervical Position: Anterior Sterile Vaginal Exam Performed By: Shravan Hill Vaginal Exam Comment: Artificial rupture membranes performed with [place] with return of clear fluid. Mother and tolerated procedure well. - Labor Progress (Free Text) Labor Progress: * Patient with severe range blood pressure this morning. She has had ongoing severe range blood pressures throughout the evening with the last one occurring around midnight. With these ongoing severe range blood pressures patient is now showing severe features of preeclampsia. Recommend for her to start on magnesium for seizure prophylaxis. We will start on magnesium 4 g bolus and then 2 g/h and we will continue the 2 g/h for 24 hours after delivery. May initiate monitoring of deep tendon reflexes to check for loss of reflexes which may indicate hypermagnesemia. * Patient with sustained severe range blood pressure and we will treat her with labetalol 20 mg IV and recheck her blood pressure in 10 minutes and continue to monitor closely. * Continue to monitor vitals closely * Artificial rupture membranes performed as per note above. Mother and infant tolerated procedure without difficulty * Continue Pitocin for induction of labor * Epidural in place and working well * Anticipate vaginal delivery unless otherwise indicated Shravan Hill MD 7:58 AM 02/18/2019
[2019-02-18] MEDS ORDERED: Magnesium Sulfate/Water 40 GM/1,000 ML BAG ONE (07:59)
[2019-02-18] MEDS ORDERED: Calcium Gluconate 10% 1 GM/10 ML SDV IV PRN (08:00)
[2019-02-18] MEDS ORDERED: Magnesium Sulfate/Water 2 GM in Premix Bag 1 BAG IV SCH (08:00)
[2019-02-18] MEDS ORDERED: Magnesium Sulfate/Water 4 GM in Premix Bag 1 BAG IV ONE ×3 (08:00→08:30)
[2019-02-18] MEDS: Magnesium Sulfate/Water 40 GM/1,000 ML BAG IV SCH (08:28)
[2019-02-18] MEDS ORDERED: Oxytocin/Lactated Ringers 20 UNIT/1,000 ML BAG IV SCH (11:00)
[2019-02-18] MEDS ORDERED: Misoprostol 200 MCG Tab ONE (14:37)
[2019-02-18] MEDS ORDERED: Misoprostol 200 MCG Tab PO STA (14:40)
[2019-02-18] MEDS ORDERED: Carboprost Tromethamine 250 MCG/1 ML Amp ONE (14:44)
[2019-02-18] MEDS ORDERED: Atropine/Diphenoxylate 0.025-2.5 MG Tab PO ONE (14:47)
[2019-02-18] MEDS ORDERED: Carboprost Tromethamine 250 MCG/1 ML Amp IM ONE (14:47)
--- NOTE | 2019-02-18 16:16 | PCM.DEL ---
L & D Note - General Info Date of Service: 02/18/19 Mother's Due Date: 03/12/19 - Delivery Note Labor: Augmented by ARM, Induced by Oxytocin Cervical Ripening Method: Balloon Device (16 [place] Ibarra bulb filled with 50 mL sterile saline) Delivery Outcome: Livebirth Delivery Method: Spontaneous Vaginal Delivery-Single Presentation: Right Occiput Anterior (MELANIE) Nuchal Cord: None Prep: Povidone-Iodine (Betadine Anesthesia Type: Epidural Amniotic Fluid Description: Clear Episiotomy Type: None Laceration: 2nd Degree, Perineal (Midline, repaired with 3-0 Vicryl) Suture type: Vicryl Suture size: 3-0 Placenta: Intact Cord: 3 Vessels Estimated Blood Loss: 700 Resuscitation Needed: Yes [place]: Suctioned, Bulb Syringe, Stimulated, Warmed, [place] Used, Warmer Used Provider: Shravan Hill Score 1 min: 7 Score 5 min: 9 Second Stage Interventions: Reports: Pushing Effectively, Pushing, Stirrups/Leg Supports Delivery Comments (Free Text/Narrative):: Stage I: Sophie Reyes was admitted for medically indicated induction of labor with abnormal monitoring status with low biophysical profile score of 4/ 10. She had initially come in for monitoring with reported decreased movement and was noted to have several decelerations including 1 definitive late deceleration. She underwent the biophysical profile that scored 2/8 with points being taken off for no movement, no tone and no breathing movements. She got 2 points for normal ERNIE of 11.07 cm. Discussion was had with the patient to review the low biophysical profile score and recommendation for delivery and she desired to proceed with induction. During initial evaluation she had a mild range blood pressures and had repeat of her labs that showed elevated protein/creatinine ratio of 3.732. She was diagnosed with preeclampsia without severe features at that time. On admission her cervix was dilated to 3 cm. She was GBS negative. She had a 16 [place] Ibarra bulb placed through the cervix manually and filled with 50 mL of sterile saline. She was started on Pitocin for induction of labor. She was given an epidural for anesthesia. In the morning of induction day #2 she was noted to have ongoing severe range blood pressures and was diagnosed with preeclampsia with severe features given her ongoing severe range blood pressures. She had a severe sustained blood pressure that was treated with labetalol 20 mg IV x1 dose. She did not have any additional severe range blood pressures after that dose of IV labetalol. She was started on magnesium sulfate IV for seizure prophylaxis with 4 g IV bolus then 2 g/h. She had artificial rupture of membranes with return of clear fluid. She progressed to complete and pushing. Stage II: On 02/18/2019 she had a normal vaginal delivery of a live female at 14:26. Apgars of 7 & 9. Weight of 3100 g (6 lbs 13.3 oz). Length of 19.5 inches. There was no nuchal cord. was delivered in MELANIE position. The cord was doubly clamped and cut by myself. was placed on mother's abdomen. Stage III: She had a spontaneous delivery of an intact placenta in Lucy presentation. Three vessel cord. She was given pitocin and fundal massage. She had uterine atony of the lower uterine segment and was given Cytotec 1000 mcg buccally. She had ongoing lower uterine segment atony and was given Hemabate 250 mcg IM x1 dose. Her bleeding slowed significantly at this time. She had second-degree midline perineal laceration that was repaired with 3-0 Vicryl. Mom and baby were stable to recovery. EBL of 700 mL. Shravan Hill MD 4:14 PM 02/18/2019 Induction Criteria - Fraire Score Fraire Score Dilation: 3-4 cm Fraire Score Effacement: 40-50% Fraire Score Infant's Station: -3 Fraire Score Consistency: Medium Fraire Score Cervix Position: Anterior Fraire Score Total: 6 Fraire Score Presenting Part: Reports: Cephalic - Induction Gestational Age >/= 39 wks: No Medical Indication: Low biophysical profile score of 4/10 with points taken off for no movement, no tone and no breathing movements. Points given for normal ERNIE of 11.07 cm and reactive NST. Estimated Pelvis: Reports: Adequate Reassuring Monitoring Strip: Yes Absence of Tachy Systole: Yes - Augmentation Estimated Pelvis: Reports: Adequate Weight Estimated:: Reports: AGA Reassuring Monitoring Strip: Yes Absence of Tachy Systole: Yes - General Info Date of Service: 02/18/19 - Patient Data Vitals - Most Recent: Last Vital Signs Temp 36.3 C 02/17/19 14:35 Pulse 92 02/17/19 17:01 Resp 16 02/17/19 14:35 BP 156/89 H 02/17/19 17:01 Pulse Ox 100 02/17/19 14:35 Weight - Most Recent: 112.037 kg I&O - Last 24 Hours: Intake & Output 02/18/19 02/18/19 02/18/19 06:59 14:59 22:59 Intake Total 1999 2170 200 Output Total 1500 Balance 1999 670 200 Lab Results Last 24 Hours: Laboratory Results - last 24 hr 02/17/19 02/17/19 02/17/19 Range/Units 16:20 16:20 16:20 WBC 15.97 H (3.98-10.04) K/mm3 RBC 3.97 L (3.98-5.22) M/mm3 Hgb 10.9 L (11.2-15.7) gm/dl Hct 33.7 L (34.1-44.9) % MCV 84.9 D (79.4-94.8) fl MCH 27.5 (25.6-32.2) pg MCHC 32.3 (32.2-35.5) g/dl RDW Std Deviation 44.0 (36.4-46.3) fL Plt Count 320 (182-369) K/mm3 MPV 11.2 (9.4-12.3) fl Neut % (Auto) 71.7 H (34.0-71.1) % Lymph % (Auto) 17.7 L (19.3-51.7) % [place] % (Auto) 9.3 (4.7-12.5) % Eos % (Auto) 0.1 L (0.7-5.8) Baso % (Auto) 0.1 (0.1-1.2) % Neut # (Auto) 11.46 H (1.56-6.13) K/mm3 Lymph # (Auto) 2.82 (1.18-3.74) K/mm3 [place] # (Auto) 1.49 H (0.24-0.36) K/mm3 Eos # (Auto) 0.01 L (0.04-0.36) K/mm3 Baso # (Auto) 0.02 (0.01-0.08) K/mm3 Manual Slide Review Abnormal smear Sodium 143 (136-145) mEq/L Potassium 3.1 L (3.5-5.1) mEq/L Chloride 105 (98-107) mEq/L Carbon Dioxide 25 (21-32) mEq/L Anion Gap 16.1 H (5-15) BUN 13 (7-18) mg/dL Creatinine 0.6 (0.55-1.02) mg/dL Est Cr Clr Drug Dosing 121.20 mL/min Estimated GFR (MDRD) > 60 (>60) mL/min BUN/Creatinine Ratio 21.7 H (14-18) Glucose 117 H (74-106) mg/dL Calcium 8.7 (8.5-10.1) mg/dL Total Bilirubin 0.5 (0.2-1.0) mg/dL AST 13 L (15-37) U/L ALT 15 (14-59) U/L Alkaline Phosphatase 118 H (46-116) U/L Total Protein 6.5 (6.4-8.2) g/dl Albumin 2.8 L (3.4-5.0) g/dl Globulin 3.7 gm/dL Albumin/Globulin Ratio 0.8 L (1-2) Ur Random Creatinine (30.0-125.0) mg/dL U Random Total Protein (0.0-11.8) mg/dL Protein/Creatinin Ratio (0-149) mg/g Blood Type A POSITIVE Gel Antibody Screen Negative 02/17/19 Range/Units 18:15 WBC (3.98-10.04) K/mm3 RBC (3.98-5.22) M/mm3 Hgb (11.2-15.7) gm/dl Hct (34.1-44.9) % MCV (79.4-94.8) fl MCH (25.6-32.2) pg MCHC (32.2-35.5) g/dl RDW Std Deviation (36.4-46.3) fL Plt Count (182-369) K/mm3 MPV (9.4-12.3) fl Neut % (Auto) (34.0-71.1) % Lymph % (Auto) (19.3-51.7) % [place] % (Auto) (4.7-12.5) % Eos % (Auto) (0.7-5.8) Baso % (Auto) (0.1-1.2) % Neut # (Auto) (1.56-6.13) K/mm3 Lymph # (Auto) (1.18-3.74) K/mm3 [place] # (Auto) (0.24-0.36) K/mm3 Eos # (Auto) (0.04-0.36) K/mm3 Baso # (Auto) (0.01-0.08) K/mm3 Manual Slide Review Sodium (136-145) mEq/L Potassium (3.5-5.1) mEq/L Chloride (98-107) mEq/L Carbon Dioxide (21-32) mEq/L Anion Gap (5-15) BUN (7-18) mg/dL Creatinine (0.55-1.02) mg/dL Est Cr Clr Drug Dosing mL/min Estimated GFR (MDRD) (>60) mL/min BUN/Creatinine Ratio (14-18) Glucose (74-106) mg/dL Calcium (8.5-10.1) mg/dL Total Bilirubin (0.2-1.0) mg/dL AST (15-37) U/L ALT (14-59) U/L Alkaline Phosphatase (46-116) U/L Total Protein (6.4-8.2) g/dl Albumin (3.4-5.0) g/dl Globulin gm/dL Albumin/Globulin Ratio (1-2) Ur Random Creatinine 95.8 (30.0-125.0) mg/dL U Random Total Protein 357.6 H (0.0-11.8) mg/dL Protein/Creatinin Ratio 3732.8 H (0-149) mg/g Blood Type Gel Antibody Screen Med Orders - Current: Current Medications Acetaminophen (Tylenol) 650 mg PO Q6H PRN PRN Reason: Headache/Pain Last Admin: 02/18/19 11:23 Dose: 650 mg Calcium Gluconate (Calcium Gluconate) 1 gm IV ASDIRECTED PRN PRN Reason: respiratory distress Diphenhydramine HCl (Benadryl) 25 mg IVPUSH Q6H PRN PRN Reason: pruritis Ephedrine Sulfate (Ephedrine Sulfate) 5 mg IVPUSH ASDIRECTED PRN PRN Reason: Hypotension Fentanyl (Sublimaze) 100 mcg EPIDUR Q3H PRN PRN Reason: Pain Last Admin: 12/22/19 03:12 Dose: 100 mcg Fentanyl/Bupivacaine HCl (Fentanyl/Bupivacaine/Ns 2 Mcg-0.125% 250 Ml) 250 ml EPIDUR CONTINUOUS PRN PRN Reason: Pain Last Admin: 02/18/19 03:13 Dose: 250 ml Lactated Ringer's (Ringers, Lactated) 1,000 mls @ 100 mls/hr IV ASDIRECTED [place] Last Admin: 02/18/19 08:10 Dose: 75 mls/hr Oxytocin/Lactated Ringer's (Pitocin In Lr 10 Units/1,000 Ml) 10 unit in 1,000 mls @ 12 mls/hr IV TITRATE [place]; Protocol Last Titration: 02/18/19 05:38 Dose: 18 munits/min, 108 mls/hr Oxytocin/Lactated Ringer's (Pitocin In Lr 10 Units/1,000 Ml) 10 unit in 1,000 mls @ 100 mls/hr IV .CONTINUOUS [place] Magnesium Sulfate (Magnesium Sulfate In Water Premix) 40 gm in 1,000 mls @ 50 mls/hr IV ASDIRECTED [place] Stop: 02/19/19 14:30 Last Admin: 02/18/19 08:28 Dose: 50 mls/hr Oxytocin/Lactated Ringer's (Pitocin In Lr 20 Units/1,000 Ml) 20 unit in 1,000 mls @ 54 mls/hr IV TITRATE [place]; Protocol Last Admin: 02/18/19 11:00 Dose: 54 mls/hr Montelukast Sodium (Singulair) 10 mg PO BEDTIME [place] Last Admin: 02/17/19 21:51 Dose: 10 mg Nalbuphine HCl (Nubain) 10 mg IVPUSH Q2H PRN PRN Reason: Pain Pantoprazole Sodium (Protonix) 40 mg PO BEDTIME [place] Last Admin: 02/17/19 21:51 Dose: 40 mg Discontinued Medications Carboprost Tromethamine (Hemabate Ds) Confirm Administered Dose 250 mcg .ROUTE .STK-MED ONE Stop: 02/18/19 14:45 Last Admin: 02/18/19 15:11 Dose: Not Given Carboprost Tromethamine (Hemabate Ds) 250 mcg IM ONETIME ONE Stop: 02/18/19 14:48 Last Admin: 02/18/19 14:46 Dose: 250 mcg Diphenoxylate HCl/Atropine (Lomotil 0.025-2.5 Mg) 2 tab PO ONETIME ONE Stop: 02/18/19 14:48 Last Admin: 02/18/19 15:12 Dose: 2 tab Gentamicin Sulfate (Pharmacy To Dose - Gentamicin) 0 dose .XX ASDIRECTED PRN PRN Reason: RX TO DOSE GENTAMICIN Gentamicin Sulfate 410 mg/ (Sodium Chloride) 110.25 mls @ 220.5 mls/hr IV Q24H [place] Last Admin: 02/17/19 15:47 Dose: 220.5 mls/hr Lactated Ringer's (Ringers, Lactated) 1,000 mls @ 999 mls/hr IV .BOLUS ONE Stop: 02/17/19 17:35 Last Admin: 02/17/19 17:19 Dose: 999 mls/hr Magnesium Sulfate (Magnesium Sulfate In Water Premix) Confirm Administered Dose 40 gm in 1,000 mls @ as directed .ROUTE .STK-MED ONE Stop: 02/18/19 08:00 Last Admin: 02/18/19 08:31 Dose: Not Given Magnesium Sulfate 4 gm/ Premix 100 mls @ 300 mls/hr IV ONETIME ONE Stop: 02/18/19 08:03 Last Admin: 02/18/19 08:31 Dose: Not Given Magnesium Sulfate 4 gm/ Premix 50 mls @ 300 mls/hr IV ONETIME ONE Stop: 02/18/19 08:09 Last Admin: 02/18/19 11:44 Dose: Not Given Magnesium Sulfate 2 gm/ Premix 50 mls @ 50 mls/hr IV Q1H [place] Last Admin: 02/18/19 11:44 Dose: Not Given Magnesium Sulfate 4 gm/ Premix 50 mls @ 300 mls/hr IV ONETIME ONE Stop: 02/18/19 08:39 Last Admin: 02/18/19 08:10 Dose: 300 mls/hr Labetalol HCl (Normodyne) Confirm Administered Dose 100 mg .ROUTE .STK-MED ONE Stop: 02/18/19 07:50 Last Admin: 02/18/19 07:53 Dose: 20 mg Labetalol HCl (Normodyne) 20 mg IVPUSH ONETIME ONE; Protocol Stop: 02/18/19 07:56 Last Admin: 02/18/19 08:31 Dose: Not Given Misoprostol (Cytotec) Confirm Administered Dose 1,000 mcg .ROUTE .STK-MED ONE Stop: 02/18/19 14:38 Last Admin: 02/18/19 14:50 Dose: Not Given Misoprostol (Cytotec) 1,000 mcg PO ONETIME STA Stop: 02/18/19 14:41 Last Admin: 02/18/19 14:39 Dose: 1,000 mcg - Problem List & Annotations (1) 36 weeks gestation of SNOMED Code(s): 01601765 Code(s): Z3A.36 - 36 WEEKS GESTATION OF Status: Acute Current Visit: Yes (2) Non-reassuring heart rate with late deceleration SNOMED Code(s): 729134367, 304023279 Code(s): O36.8390 - MATERN CARE FOR ABNLT FETL HRT RATE OR RHYM, UNSP TRI, UNSP Status: Acute Current Visit: Yes (3) Obesity SNOMED Code(s): 477370683, 770961454 Code(s): E66.9 - OBESITY, UNSPECIFIED Status: Acute Current Visit: Yes (4) Advanced maternal age in multigravida SNOMED Code(s): 272570364 Code(s): O09.529 - SUPERVISION OF ELDERLY MULTIGRAVIDA, UNSPECIFIED TRIMESTER Status: Acute Current Visit: Yes (5) Severe preeclampsia SNOMED Code(s): 67538199 Code(s): O14.10 - SEVERE PRE-ECLAMPSIA, UNSPECIFIED TRIMESTER Status: Acute Current Visit: Yes (6) Vaginal delivery SNOMED Code(s): 327762727 Code(s): O80 - ENCOUNTER FOR FULL-TERM UNCOMPLICATED DELIVERY Status: Acute Current Visit: Yes (7) Second degree perineal laceration during delivery SNOMED Code(s): 9603143 Code(s): O70.1 - SECOND DEGREE PERINEAL LACERATION DURING DELIVERY Status: Acute Current Visit: Yes (8) delivery SNOMED Code(s): 049423368, 280419733 Code(s): O60.10X0 - LABOR W DELIVERY, UNSP TRIMESTER, UNSP Status: Acute Current Visit: Yes - Problem List Review Problem List Initiated/Reviewed/Updated: Yes - My Orders Last 24 Hours: My Active Orders 02/17/19 16:20 RAPID PLASMA REAGIN,RPR [CHEM] Routine 02/17/19 16:34 BPP wo NST [US] Routine 02/17/19 20:24 Nalbuphine [Nubain] 10 mg IVPUSH Q2H PRN 02/17/19 20:26 Patient Status [ADT] Routine Activity as Tolerated [RC] PFP Communication Order [RC] ASDIRECTED Notify Provider [RC] PFP Notify Provider [RC] PRN Electronic Heart Tones Ext w TOCO [WOMSER] Routine Electronic Heart Tones Internal [WOMSER] Per Unit Routine 02/17/19 20:30 Lactated Ringers [Ringers, Lactated] 1,000 ml IV ASDIRECTED Oxytocin/Lactated Ringers [Pitocin in LR 10 Units/1,000 ML] 10 unit in 1,000 ml IV .CONTINUOUS Oxytocin/Lactated Ringers [Pitocin in LR 10 Units/1,000 ML] 10 unit in 1,000 ml IV TITRATE 02/17/19 21:00 Montelukast [Singulair] 10 mg PO BEDTIME Pantoprazole [ProTONIX] 40 mg PO BEDTIME 02/17/19 Dinner Regular Diet [DIET] 02/18/19 02:16 Acetaminophen [Tylenol] 650 mg PO Q6H PRN 02/18/19 08:00 Bedrest [RC] ASDIRECTED Communication Order [RC] ASDIRECTED Monitoring [RC] CONTINUOUS Notify Provider [RC] ASDIRECTED Oxygen Therapy [RC] PRN Vital Signs [RC] ASDIRECTED Calcium Gluconate 1 gm IV ASDIRECTED PRN Blood Pressure [OM.PC] ASDIRECTED Deep Tendon Reflexes [WOMSER] ASDIRECTED 02/18/19 08:01 Equipment to Bedside [RC] PRN Seizure Precautions [OM.PC] Per Unit Routine 02/18/19 08:02 Notify Provider Status Change [RC] ASDIRECTED 02/18/19 08:15 Magnesium Sulfate/Water [Magnesium Sulfate in Water Premix] 40 gm in 1,000 ml IV ASDIRECTED 02/18/19 11:00 Oxytocin/Lactated Ringers [Pitocin in LR 20 Units/1,000 ML] 20 unit in 1,000 ml IV TITRATE 02/18/19 15:53 Patient Status Manage Transfer [TRANSFER] Routine - Plan Plan:: Admit to inpatient following normal spontaneous vaginal delivery Continue Pitocin per unit protocol following delivery of placenta and lactated Ringer's until tolerating regular diet Regular diet Continue magnesium sulfate 2 g/h until 1430 on 02/19/2019 due to preeclampsia with severe features Continue lactated Ringer's at 125 mL/h for total fluid rate until 1430 on 2018 Vitals per unit routine Close monitoring of vitals with preeclampsia with severe features Monitor for any signs or symptoms of worsening preeclampsia Ibuprofen and Tylenol for pain control Assist with breast-feeding as needed Continue to monitor lochia Repeat CBC in the morning of 02/19/2019 due to higher than anticipated blood loss of 700 mL during delivery Anticipate discharge home on day #2 Shravan Hill MD 4:14 PM 02/18/2019
[2019-02-18] MEDS ORDERED: Docusate Sodium 100 MG Cap PO PRN (16:19)
[2019-02-18] MEDS ORDERED: Oxytocin/Lactated Ringers 10 UNIT/1,000 ML BAG IV SCH (16:19)
[2019-02-18] MEDS ORDERED: Hydrocortisone Acetate 25 MG Supp RECTAL PRN (16:19)
[2019-02-18] MEDS ORDERED: Witch Hazel Medicated Pads 40/Jar TOP PRN (16:19)
[2019-02-18] MEDS ORDERED: Acetaminophen 325 MG Tab PO PRN (16:19)
[2019-02-18] MEDS: Benzocaine/Menthol 20%-0.5% Spray 56 GM Canister TOP PRN (17:27)
[2019-02-18] MEDS: Ibuprofen 600 MG Tab PO PRN (20:45)
[2019-02-18] MEDS: Pantoprazole 40 MG Tab.CR PO SCH (20:45)
[2019-02-18] MEDS: Montelukast 10 MG Tab PO SCH (21:50)
[2019-02-19] MEDS: Ibuprofen 600 MG Tab PO PRN ×2 (03:49→17:03)
[2019-02-19] MEDS: Magnesium Sulfate/Water 40 GM/1,000 ML BAG IV SCH (03:51)
--- NOTE | 2019-02-19 08:11 | PCM48HPAN ---
Post Anesthesia Note - EVALUATION WITHIN 48HRS OF ANESTHETIC Vital Signs in Normal Range: Yes Patient Participated in Evaluation: Yes Respiratory Function Stable: Yes Airway Patent: Yes Cardiovascular Function Stable: Yes Hydration Status Stable: Yes Pain Control Satisfactory: Yes Nausea and Vomiting Control Satisfactory: Yes Mental Status Recovered: Yes Vital Signs: Last Vital Signs Temp 37.2 C 02/19/19 03:45 Pulse 80 02/19/19 03:45 Resp 15 02/19/19 03:45 BP 131/63 02/19/19 03:45 Pulse Ox 98 02/19/19 03:45
[2019-02-19] MEDS: Ferrous Sulfate 324 MG Tab.EC PO SCH (08:33)
[2019-02-19] MEDS: Prenatal Multivitamin with Calcium/Folic Acid/Iron Tab PO SCH (08:33)
--- NOTE | 2019-02-19 08:48 | PCM.SN ---
- Free Text/Narrative Note: Post Progress Note PPD # 1 Subjective: Doing well overall. Ambulating slowly without difficulty. Lochia minimal. Voiding without difficulty. Tolerating regular diet without nausea or vomiting this morning. Reports that she did have a small amount of nausea with emesis last evening but it has not persisted. Lower abdominal pain and cramping controlled with oral medications. Breast-feeding with minimal difficulty. Denies any headaches, vision changes or epigastric pain. Reports that she is having some lightheadedness and dizziness with blurry vision since delivery. Reports that it will occur even while sitting in bed and resting. She denies any shortness of breath. Her lightheadedness does not get significantly worse with ambulation but does cause her to move slowly. She also is having some right arm weakness and pain especially with using the arm for long periods of time. Objective: Vitals: Vital Signs - 24 hr 02/18/19 02/19/19 02/19/19 20:02 03:45 07:50 Temperature 37.2 C 37.2 C 36.7 C Pulse, 94 80 77 Peripheral Respiratory 16 15 17 Rate Blood Pressure 141/78 H 131/63 150/74 H O2 Sat by Pulse 98 98 100 Oximetry Physical Exam General: Alert and oriented, no acute distress Lungs: Clear to auscultation bilaterally Heart: Regular rate and rhythm Abdomen: Soft, minimal appropriate tenderness, non-distended, fundus midline, nontender, and at the umbilicus Extremities: 1+ edema in bilateral lower extremities to knees, normal biceps tendon reflexes and patellar reflexes Laboratory Tests 02/17/19 02/17/19 02/17/19 Range/Units 16:20 16:20 16:20 WBC 15.97 H (3.98-10.04) K/mm3 RBC 3.97 L (3.98-5.22) M/mm3 Hgb 10.9 L (11.2-15.7) gm/dl Hct 33.7 L (34.1-44.9) % MCV 84.9 D (79.4-94.8) fl MCH 27.5 (25.6-32.2) pg MCHC 32.3 (32.2-35.5) g/dl RDW Std Deviation 44.0 (36.4-46.3) fL Plt Count 320 (182-369) K/mm3 MPV 11.2 (9.4-12.3) fl Neut % (Auto) 71.7 H (34.0-71.1) % Lymph % (Auto) 17.7 L (19.3-51.7) % [place] % (Auto) 9.3 (4.7-12.5) % Eos % (Auto) 0.1 L (0.7-5.8) Baso % (Auto) 0.1 (0.1-1.2) % Neut # (Auto) 11.46 H (1.56-6.13) K/mm3 Lymph # (Auto) 2.82 (1.18-3.74) K/mm3 [place] # (Auto) 1.49 H (0.24-0.36) K/mm3 Eos # (Auto) 0.01 L (0.04-0.36) K/mm3 Baso # (Auto) 0.02 (0.01-0.08) K/mm3 Manual Slide Review Abnormal smear Sodium 143 (136-145) mEq/L Potassium 3.1 L (3.5-5.1) mEq/L Chloride 105 (98-107) mEq/L Carbon Dioxide 25 (21-32) mEq/L Anion Gap 16.1 H (5-15) BUN 13 (7-18) mg/dL Creatinine 0.6 (0.55-1.02) mg/dL Est Cr Clr Drug Dosing 121.20 mL/min Estimated GFR (MDRD) > 60 (>60) mL/min BUN/Creatinine Ratio 21.7 H (14-18) Glucose 117 H (74-106) mg/dL Calcium 8.7 (8.5-10.1) mg/dL Total Bilirubin 0.5 (0.2-1.0) mg/dL AST 13 L (15-37) U/L ALT 15 (14-59) U/L Alkaline Phosphatase 118 H (46-116) U/L Total Protein 6.5 (6.4-8.2) g/dl Albumin 2.8 L (3.4-5.0) g/dl Globulin 3.7 gm/dL Albumin/Globulin Ratio 0.8 L (1-2) Ur Random Creatinine (30.0-125.0) mg/dL U Random Total Protein (0.0-11.8) mg/dL Protein/Creatinin Ratio (0-149) mg/g Blood Type A POSITIVE Gel Antibody Screen Negative 02/17/19 02/19/19 Range/Units 18:15 05:25 WBC 19.91 H (3.98-10.04) K/mm3 RBC 3.00 L (3.98-5.22) M/mm3 Hgb 8.1 L D (11.2-15.7) gm/dl Hct 25.3 L (34.1-44.9) % MCV 84.3 (79.4-94.8) fl MCH 27.0 (25.6-32.2) pg MCHC 32.0 L (32.2-35.5) g/dl RDW Std Deviation 41.9 (36.4-46.3) fL Plt Count 262 (182-369) K/mm3 MPV 11.2 (9.4-12.3) fl Neut % (Auto) 75.1 H (34.0-71.1) % Lymph % (Auto) 15.9 L (19.3-51.7) % [place] % (Auto) 7.8 (4.7-12.5) % Eos % (Auto) 0.2 L (0.7-5.8) Baso % (Auto) 0.2 (0.1-1.2) % Neut # (Auto) 14.97 H (1.56-6.13) K/mm3 Lymph # (Auto) 3.16 (1.18-3.74) K/mm3 [place] # (Auto) 1.56 H (0.24-0.36) K/mm3 Eos # (Auto) 0.04 (0.04-0.36) K/mm3 Baso # (Auto) 0.03 (0.01-0.08) K/mm3 Manual Slide Review Abnormal smear Sodium (136-145) mEq/L Potassium (3.5-5.1) mEq/L Chloride (98-107) mEq/L Carbon Dioxide (21-32) mEq/L Anion Gap (5-15) BUN (7-18) mg/dL Creatinine (0.55-1.02) mg/dL Est Cr Clr Drug Dosing mL/min Estimated GFR (MDRD) (>60) mL/min BUN/Creatinine Ratio (14-18) Glucose (74-106) mg/dL Calcium (8.5-10.1) mg/dL Total Bilirubin (0.2-1.0) mg/dL AST (15-37) U/L ALT (14-59) U/L Alkaline Phosphatase (46-116) U/L Total Protein (6.4-8.2) g/dl Albumin (3.4-5.0) g/dl Globulin gm/dL Albumin/Globulin Ratio (1-2) Ur Random Creatinine 95.8 (30.0-125.0) mg/dL U Random Total Protein 357.6 H (0.0-11.8) mg/dL Protein/Creatinin Ratio 3732.8 H (0-149) mg/g Blood Type Gel Antibody Screen ASSESSMENT: 38-year-old female -1-0-4 s/p vaginal delivery PPD #1, complicated by preeclampsia with severe features with severe range blood pressures and proteinuria currently on magnesium sulfate, history of depression and obesity PLAN: Doing well overall Blood pressures have been mild range since delivery. She did have 1 blood pressure this morning that was at 150/74 and we will continue to monitor these blood pressures. Patient continue on magnesium sulfate 2 g/h until 24 hours after delivery which will be at approximately 2:30 PM Suspect that her lightheadedness, dizziness and feeling weak are due to the magnesium sulfate. We will continue to monitor the symptoms after discontinuation of the magnesium sulfate. Patient was slightly higher than expected drop in her hematocrit down to 25.3 this morning. It is possible that this could be playing into some of her symptoms as well. We will monitor closely and repeat a CBC in the morning of day #2. If patient continues to be symptomatic after discontinuation of the magnesium sulfate we will repeat a CBC to ensure that her blood count has not dropped lower and require need for blood transfusion. Patient with history of depression and was taking Lexapro 5 mg daily and desires to restart on this medication at this time. Breast-feeding with minimal difficulty. Assist as needed Lochia minimal. Continue to monitor for appropriate lochia. Continue routine care Anticipate discharge home tomorrow Shravan Hill MD 8:51 AM 02/19/2019
--- NOTE | 2019-02-19 09:17 | US ---
Biophysical profile: Multiple real-time images were obtained transabdominally. Comparison: Previous obstetrical ultrasound of 08/22/18. Dates: Current ultrasound: CAR[facility]A 03/04/19, gestational age 37 weeks 6 days Earliest ultrasound (08/22/18): CAR[facility]A 03/06/19, gestational age 37 weeks 4 days presentation: Cephalic Placenta: Fundal Amniotic fluid: ERNIE 11.07 cm Measurements: BPD: 9.45 cm - 38 weeks 4 days Head circumference: 33.34 cm - 38 weeks 1 day Abdominal circumference: 33.88 cm - 37 weeks 6 days Femur length: 7.17 cm - 36 weeks 6 days Estimated weight: 3271 g (7 lbs. 3 oz.), estimated weight 56 percentile for age by current ultrasound Heart rate: 156 bpm Cervical length: 3.3 cm Biophysical profile: movement 0, breathing movement 0, tone 0, amniotic fluid volume 2 Impression: 1. Single intrauterine fetus currently cephalic in presentation. Dates as noted above. 2. 2 out of 8 on biophysical profile. 3. Normal ERNIE. Note: Scanning technologist gave a preliminary report to Dr. Hill Diagnostic code #5 This report was dictated in [place] Standard Time I agree with preliminary report issued by [facility] (ad report finalized on 02/17/19, 7:23 PM Central Time)
[2019-02-19] MEDS: Lactated Ringers 1,000 ML IV SCH (10:24)
[2019-02-19] MEDS: Pantoprazole 40 MG Tab.CR PO SCH (22:08)
[2019-02-19] MEDS: Montelukast 10 MG Tab PO SCH (22:09)
[2019-02-20] MEDS: Ferrous Sulfate 324 MG Tab.EC PO SCH (08:08)
[2019-02-20] MEDS: Prenatal Multivitamin with Calcium/Folic Acid/Iron Tab PO SCH (08:08)
--- NOTE | 2019-02-20 08:50 | PCM.SN ---
- Free Text/Narrative Note: Post Progress Note PPD # 2 Subjective: Doing well overall. Ambulating without difficulty. Lochia minimal. Voiding without difficulty. Reports that she has not had a bowel movement but is passing flatus. Tolerating regular diet without nausea or vomiting this morning. Pain and cramping controlled with oral medications. Breast-feeding and pumping with formula supplementation with minimal difficulty. Infant started on formula supplementation due to jaundice. Denies any headaches, vision changes or epigastric pain. Reports that her lightheadedness and dizziness has improved after the magnesium sulfate infusion was stopped. Denies any right arm pain or weakness this morning. Objective: Vitals: Vital Signs - 24 hr 02/19/19 02/19/19 02/19/19 12:57 14:37 18:43 Temperature 36.1 C 36.7 C 36.7 C Pulse, 88 85 93 Peripheral Respiratory 14 14 14 Rate Blood Pressure 149/77 H 141/81 H 135/71 O2 Sat by Pulse 97 96 98 Oximetry 02/19/19 02/20/19 02/20/19 21:19 03:13 08:02 Temperature 36.7 C 36.8 C 36.7 C Pulse, 88 82 79 Peripheral Respiratory 16 16 14 Rate Blood Pressure 126/82 125/71 156/82 H O2 Sat by Pulse 98 96 95 Oximetry Physical Exam General: Alert and oriented, no acute distress Lungs: Clear to auscultation bilaterally Heart: Regular rate and rhythm Abdomen: Soft, minimal appropriate tenderness, non-distended, fundus midline, nontender, and 1 fingerbreadth below the umbilicus Extremities: 1+ edema in bilateral lower extremities to mid shins Laboratory Results - last 24 hr 02/17/19 02/20/19 Range/Units 16:20 05:34 WBC 18.65 H (3.98-10.04) K/mm3 RBC 2.95 L (3.98-5.22) M/mm3 Hgb 8.0 L (11.2-15.7) gm/dl Hct 25.4 L (34.1-44.9) % MCV 86.1 (79.4-94.8) fl MCH 27.1 (25.6-32.2) pg MCHC 31.5 L (32.2-35.5) g/dl RDW Std Deviation 43.9 (36.4-46.3) fL Plt Count 307 (182-369) K/mm3 MPV 11.3 (9.4-12.3) fl Neut % (Auto) 70.3 (34.0-71.1) % Lymph % (Auto) 21.1 (19.3-51.7) % [place] % (Auto) 6.5 (4.7-12.5) % Eos % (Auto) 0.6 L (0.7-5.8) Baso % (Auto) 0.2 (0.1-1.2) % Neut # (Auto) 13.12 H (1.56-6.13) K/mm3 Lymph # (Auto) 3.93 H (1.18-3.74) K/mm3 [place] # (Auto) 1.21 H (0.24-0.36) K/mm3 Eos # (Auto) 0.12 (0.04-0.36) K/mm3 Baso # (Auto) 0.03 (0.01-0.08) K/mm3 RPR Non-reactive (NONREACTIVE) ASSESSMENT: 38-year-old female -1-0-4 s/p vaginal delivery PPD #2, complicated by preeclampsia with severe features with severe range blood pressures and proteinuria currently on magnesium sulfate, history of depression and obesity PLAN: Doing well overall Blood pressures have been normal to mild range since delivery. She did have 1 blood pressure this morning that was at 156/82 and we will continue to monitor these blood pressures. Hemoglobin this morning was at 8.0 which is stable from yesterday at 8.1. Suspect that patient has had stabilization of her blood count at this time. Patient with history of depression and restarted taking Lexapro 5 mg daily. Breast-feeding with minimal difficulty. Assist as needed Lochia minimal. Continue to monitor for appropriate lochia. Increase iron sulfate to 1 tablet twice daily with meals at breakfast and dinner Continue routine care Discharge home today Shravan Hill MD 8:44 AM 02/20/2019
--- NOTE | 2019-02-20 09:03 | PCM.DCSUM1 ---
Discharge Summary - Hospital Course Free Text/Narrative:: Stage I: Sophie Reyes was admitted for medically indicated induction of labor with abnormal monitoring status with low biophysical profile score of 4/ 10. She had initially come in for monitoring with reported decreased movement and was noted to have several decelerations including 1 definitive late deceleration. She underwent the biophysical profile that scored 2/8 with points being taken off for no movement, no tone and no breathing movements. She got 2 points for normal ERNIE of 11.07 cm. Discussion was had with the patient to review the low biophysical profile score and recommendation for delivery and she desired to proceed with induction. During initial evaluation she had a mild range blood pressures and had repeat of her labs that showed elevated protein/creatinine ratio of 3.732. She was diagnosed with preeclampsia without severe features at that time. On admission her cervix was dilated to 3 cm. She was GBS negative. She had a 16 [place] Ibarra bulb placed through the cervix manually and filled with 50 mL of sterile saline. She was started on Pitocin for induction of labor. She was given an epidural for anesthesia. In the morning of induction day #2 she was noted to have ongoing severe range blood pressures and was diagnosed with preeclampsia with severe features given her ongoing severe range blood pressures. She had a severe sustained blood pressure that was treated with labetalol 20 mg IV x1 dose. She did not have any additional severe range blood pressures after that dose of IV labetalol. She was started on magnesium sulfate IV for seizure prophylaxis with 4 g IV bolus then 2 g/h. She had artificial rupture of membranes with return of clear fluid. She progressed to complete and pushing. Stage II: On 02/18/2019 she had a normal vaginal delivery of a live female infant at 14:26. Apgars of 7 & 9. Weight of 3100 g (6 lbs 13.3 oz). Length of 19.5 inches. There was no nuchal cord. Infant was delivered in MELANIE position. The cord was doubly clamped and cut by myself. was placed on mother's abdomen. Stage III: She had a spontaneous delivery of an intact placenta in Lucy presentation. Three vessel cord. She was given pitocin and fundal massage. She had uterine atony of the lower uterine segment and was given Cytotec 1000 mcg buccally. She had ongoing lower uterine segment atony and was given Hemabate 250 mcg IM x1 dose. Her bleeding slowed significantly at this time. She had second-degree midline perineal laceration that was repaired with 3-0 Vicryl. Mom and baby were stable to recovery. EBL of 700 mL. HPI Initial Comments: Stage I: Sophie Reyes was admitted for medically indicated induction of labor with abnormal monitoring status with low biophysical profile score of 4/ 10. She had initially come in for monitoring with reported decreased movement and was noted to have several decelerations including 1 definitive late deceleration. She underwent the biophysical profile that scored 2/8 with points being taken off for no movement, no tone and no breathing movements. She got 2 points for normal ERNIE of 11.07 cm. Discussion was had with the patient to review the low biophysical profile score and recommendation for delivery and she desired to proceed with induction. During initial evaluation she had a mild range blood pressures and had repeat of her labs that showed elevated protein/creatinine ratio of 3.732. She was diagnosed with preeclampsia without severe features at that time. On admission her cervix was dilated to 3 cm. She was GBS negative. She had a 16 [place] Ibarra bulb placed through the cervix manually and filled with 50 mL of sterile saline. She was started on Pitocin for induction of labor. She was given an epidural for anesthesia. In the morning of induction day #2 she was noted to have ongoing severe range blood pressures and was diagnosed with preeclampsia with severe features given her ongoing severe range blood pressures. She had a severe sustained blood pressure that was treated with labetalol 20 mg IV x1 dose. She did not have any additional severe range blood pressures after that dose of IV labetalol. She was started on magnesium sulfate IV for seizure prophylaxis with 4 g IV bolus then 2 g/h. She had artificial rupture of membranes with return of clear fluid. She progressed to complete and pushing. Stage II: On 02/18/2019 she had a normal vaginal delivery of a live female infant at 14:26. Apgars of 7 & 9. Weight of 3100 g (6 lbs 13.3 oz). Length of 19.5 inches. There was no nuchal cord. was delivered in MELANIE position. The cord was doubly clamped and cut by myself. was placed on mother's abdomen. Stage III: She had a spontaneous delivery of an intact placenta in Lucy presentation. Three vessel cord. She was given pitocin and fundal massage. She had uterine atony of the lower uterine segment and was given Cytotec 1000 mcg buccally. She had ongoing lower uterine segment atony and was given Hemabate 250 mcg IM x1 dose. Her bleeding slowed significantly at this time. She had second-degree midline perineal laceration that was repaired with 3-0 Vicryl. Mom and baby were stable to recovery. EBL of 700 mL. Brief History: Stage I: Sophie Reyes was admitted for medically indicated induction of labor with abnormal monitoring status with low biophysical profile score of 4/10. She had initially come in for monitoring with reported decreased movement and was noted to have several decelerations including 1 definitive late deceleration. She underwent the biophysical profile that scored 2/8 with points being taken off for no movement, no tone and no breathing movements. She got 2 points for normal ERNIE of 11.07 cm. Discussion was had with the patient to review the low biophysical profile score and recommendation for delivery and she desired to proceed with induction. During initial evaluation she had a mild range blood pressures and had repeat of her labs that showed elevated protein/creatinine ratio of 3.732. She was diagnosed with preeclampsia without severe features at that time. On admission her cervix was dilated to 3 cm. She was GBS negative. She had a 16 [place] Ibarra bulb placed through the cervix manually and filled with 50 mL of sterile saline. She was started on Pitocin for induction of labor. She was given an epidural for anesthesia. In the morning of induction day #2 she was noted to have ongoing severe range blood pressures and was diagnosed with preeclampsia with severe features given her ongoing severe range blood pressures. She had a severe sustained blood pressure that was treated with labetalol 20 mg IV x1 dose. She did not have any additional severe range blood pressures after that dose of IV labetalol. She was started on magnesium sulfate IV for seizure prophylaxis with 4 g IV bolus then 2 g/h. She had artificial rupture of membranes with return of clear fluid. She progressed to complete and pushing. Stage II: On 02/18/2019 she had a normal vaginal delivery of a live female at 14:26. Apgars of 7 & 9. Weight of 3100 g (6 lbs 13.3 oz). Length of 19.5 inches. There was no nuchal cord. Infant was delivered in MELANIE position. The cord was doubly clamped and cut by myself. Infant was placed on mother's abdomen. Stage III: She had a spontaneous delivery of an intact placenta in Lucy presentation. Three vessel cord. She was given pitocin and fundal massage. She had uterine atony of the lower uterine segment and was given Cytotec 1000 mcg buccally. She had ongoing lower uterine segment atony and was given Hemabate 250 mcg IM x1 dose. Her bleeding slowed significantly at this time. She had second-degree midline perineal laceration that was repaired with 3-0 Vicryl. Mom and baby were stable to recovery. EBL of 700 mL. Diagnosis: Stroke: No - Discharge Data Discharge Date: 02/20/19 Discharge Disposition: Home, Self-Care 01 Condition: Good - Referral to Home Health Primary Care Physician: Shravan Hill MD - Discharge Diagnosis/Problem(s) (1) 36 weeks gestation of SNOMED Code(s): 32113161 ICD Code: Z3A.36 - 36 WEEKS GESTATION OF Status: Acute Current Visit: Yes (2) Non-reassuring heart rate with late deceleration SNOMED Code(s): 522775865, 486079111 ICD Code: O36.8390 - MATERN CARE FOR ABNLT FETL HRT RATE OR RHYM, UNSP TRI, UNSP Status: Acute Current Visit: Yes (3) Obesity SNOMED Code(s): 270641206, 933498094 ICD Code: E66.9 - OBESITY, UNSPECIFIED Status: Acute Current Visit: Yes (4) Advanced maternal age in multigravida SNOMED Code(s): 025149571 ICD Code: O09.529 - SUPERVISION OF ELDERLY MULTIGRAVIDA, UNSPECIFIED TRIMESTER Status: Acute Current Visit: Yes (5) Severe preeclampsia SNOMED Code(s): 26693985 ICD Code: O14.10 - SEVERE PRE-ECLAMPSIA, UNSPECIFIED TRIMESTER Status: Acute Current Visit: Yes (6) Vaginal delivery SNOMED Code(s): 628436228 ICD Code: O80 - ENCOUNTER FOR FULL-TERM UNCOMPLICATED DELIVERY Status: Acute Current Visit: Yes (7) Second degree perineal laceration during delivery SNOMED Code(s): 3408461 ICD Code: O70.1 - SECOND DEGREE PERINEAL LACERATION DURING DELIVERY Status : Acute Current Visit: Yes (8) delivery SNOMED Code(s): 876410080, 090560494 ICD Code: O60.10X0 - LABOR W DELIVERY, UNSP TRIMESTER, UNSP Status: Acute Current Visit: Yes - Patient Summary/Data Complications: None Consults: None Hospital Course: Sophie Reyes was admitted for medically indicated induction of labor after evaluation on labor and delivery. Patient had presented for IV gentamicin infusion for urinary tract infection and noted that she had been having decreased movement throughout the morning. During her monitoring she had several decelerations with 1 definitive late deceleration. She did have a reactive NST, however because of this deceleration she was recommended to have additional testing to ensure of safety. A biophysical profile was performed that gave a score of 2/8 for the ultrasound portion with points being taken off for no movements, no tone and no breathing movements. She was given points for normal ERNIE of 11.07 cm and a reactive NST for a total BPP score of 4/10. Because this score was at a 4/10 patient was recommended to undergo induction of labor and she agreed to the induction. During this time she was also noted to have mild range blood pressures and lab work was obtained that showed proteinuria with other normal lab findings. Because of this preeclampsia she was diagnosed with preeclampsia without severe features. On admission her cervix was dilated to 3 cm. She was GBS negative.she had a 16 [place] Ibarra bulb placed through the cervix manually filled with 50 mL of sterile saline. She was given pitocin for augmentation. She was given an epidural for anesthesia. In the morning of induction day #2 she was noted to have ongoing severe range blood pressures and was diagnosed with preeclampsia with severe features. She had a severe sustained blood pressure and was treated with labetalol 20 mg IV x1 dose. She was started on magnesium sulfate IV for seizure prophylaxis with 4 g IV bolus then 2 g/h after. She had artificial rupture of membranes with clear fluid. She progressed to complete and began pushing. On 02/18/2019 she had a vaginal delivery of a live female infant at 14:26. Apgars of 7 and 9. Weight of 3100 g (6 pounds 13.3 ounces). After delivery she had lower uterine segment atony and was treated with Cytotec 1000 mcg buccally and Hemabate 250 mcg IM x1 dose and was able to have good control of her bleeding. She was continued on magnesium sulfate IV 2 g/h for 24 hours after delivery. Her course was overall uneventful. Her pain was well controlled and she had minimal lochia. On day #1 she reported that she was having lightheadedness, dizziness and muscle weakness with the magnesium sulfate running. This improved after the magnesium sulfate was stopped at around 14:30 on day #1. On day #2 she was ambulating, tolerating a regular diet and voiding normally. She was breast-feeding with pumping as well as formula supplementation with minimal difficulty. The infant was started on formula supplementation due to jaundice. She was afebrile and her hematocrit was 25.4 on day #2. She desired to be discharged home on the morning of PPD # 2. Her blood type is A+. - Patient Instructions Diet: Regular Diet as Tolerated Activity: Apply Ice, As Tolerated Activity, Other: Nothing in the vagina for 6 weeks Driving: May Drive Today Showering/Bathing: May Shower Notify Provider of: Fever, Increased Pain, Swelling and Redness, Drainage, Nausea and/or Vomiting Other/Special Instructions: Please contact your physician's office if you have heavy vaginal bleeding enough to soak a pad in less than an hour for several hours. Monitor for any signs of an infection in the breasts with severe pain or redness of the breast. Monitor for any signs of elevated blood pressures such as severe headache that does not improve with Tylenol, vision changes with spots in your vision or pain in your upper stomach/abdomen. - Discharge Plan *PRESCRIPTION DRUG MONITORING PROGRAM REVIEWED*: Not Applicable *COPY OF PRESCRIPTION DRUG MONITORING REPORT IN PATIENT NUNU: Not Applicable Home Medications: Home Meds Montelukast [Singulair] 10 mg PO DAILY 08/22/18 [History] Pnv No.103/Folic/Om3s/Fish Oil [ Gummies] 2 tab PO DAILY 08/22/18 [ History] Lansoprazole [Prevacid] 15 mg PO DAILY 02/15/19 [History] Acetaminophen [Tylenol] 650 mg PO Q6H PRN tablet 02/20/19 [Rx] Benzocaine/Menthol [Dermoplast Pain Relief [place]] 1 spray TOP ASDIRECTED PRN canister 02/20/19 [Rx] Docusate Sodium [Colace] 100 mg PO BID PRN cap 02/20/19 [Rx] Ferrous Sulfate 324 mg PO BIDMEALS tab.ec 02/20/19 [Rx] Hydrocortisone Acetate [Anucort-HC] 25 mg RECTAL BID PRN supp 02/20/19 [Rx] Ibuprofen [Motrin] 600 mg PO Q6H PRN tablet 02/20/19 [Rx] [place] [Tucks] 1 pad TOP ASDIRECTED PRN pad 02/20/19 [Rx] Patient Handouts: Hypertension During , [id number], Vaginal Delivery , Care After, Care of a Perineal Tear Referrals: Dulce Renee MD [Physician] - (Follow-up in the clinic for a blood pressure check this 02/23/2019, or 02/26/2019. Recommend for you to have a follow-up appointment with Dr. Renee in 2 weeks or earlier as needed.) - Discharge Summary/Plan Comment DC Time >30 min.: No - Patient Data Vitals - Most Recent: Last Vital Signs Temp 36.7 C 02/20/19 08:02 Pulse 79 02/20/19 08:02 Resp 14 02/20/19 08:02 BP 156/82 H 02/20/19 08:02 Pulse Ox 95 02/20/19 08:02 Weight - Most Recent: 112.037 kg I&O - Last 24 hours: Intake & Output 02/19/19 02/20/19 02/20/19 22:59 06:59 14:59 Intake Total 980 Balance 980 Lab Results - Last 24 hrs: Laboratory Results - last 24 hr 02/17/19 02/20/19 Range/Units 16:20 05:34 WBC 18.65 H (3.98-10.04) K/mm3 RBC 2.95 L (3.98-5.22) M/mm3 Hgb 8.0 L (11.2-15.7) gm/dl Hct 25.4 L (34.1-44.9) % MCV 86.1 (79.4-94.8) fl MCH 27.1 (25.6-32.2) pg MCHC 31.5 L (32.2-35.5) g/dl RDW Std Deviation 43.9 (36.4-46.3) fL Plt Count 307 (182-369) K/mm3 MPV 11.3 (9.4-12.3) fl Neut % (Auto) 70.3 (34.0-71.1) % Lymph % (Auto) 21.1 (19.3-51.7) % [place] % (Auto) 6.5 (4.7-12.5) % Eos % (Auto) 0.6 L (0.7-5.8) Baso % (Auto) 0.2 (0.1-1.2) % Neut # (Auto) 13.12 H (1.56-6.13) K/mm3 Lymph # (Auto) 3.93 H (1.18-3.74) K/mm3 [place] # (Auto) 1.21 H (0.24-0.36) K/mm3 Eos # (Auto) 0.12 (0.04-0.36) K/mm3 Baso # (Auto) 0.03 (0.01-0.08) K/mm3 RPR Non-reactive (NONREACTIVE) Med Orders - Current: Current Medications Acetaminophen (Tylenol) 650 mg PO Q6H PRN PRN Reason: mild pain or fever Last Admin: 02/19/19 01:39 Dose: 650 mg Benzocaine/Menthol (Dermoplast Pain Relief [place]) 0 gm TOP ASDIRECTED PRN PRN Reason: Perineal Comfort Measure Last Admin: 02/18/19 17:27 Dose: 1 can Calcium Gluconate (Calcium Gluconate) 1 gm IV ASDIRECTED PRN PRN Reason: respiratory distress Docusate Sodium (Colace) 100 mg PO BID PRN PRN Reason: Constipation Ferrous Sulfate (Ferrous Sulfate) 324 mg PO BIDMEALS [place] Hydrocortisone Acetate (Anucort-Hc) 25 mg RECTAL BID PRN PRN Reason: Hemorrhoid pain Lactated Ringer's (Ringers, Lactated) 1,000 mls @ 125 mls/hr IV ASDIRECTED [place] Last Admin: 02/19/19 10:24 Dose: 75 mls/hr Oxytocin/Lactated Ringer's (Pitocin In Lr 10 Units/1,000 Ml) 10 unit in 1,000 mls @ 100 mls/hr IV TITRATE [place]; Protocol Ibuprofen (Motrin) 600 mg PO Q6H PRN PRN Reason: Mild pain or fever Last Admin: 02/19/19 17:03 Dose: 600 mg Montelukast Sodium (Singulair) 10 mg PO BEDTIME [facility] Last Admin: 02/19/19 22:09 Dose: Not Given Pantoprazole Sodium (Protonix) 40 mg PO BEDTIME [facility] Last Admin: 02/19/19 22:08 Dose: 40 mg Prenat Multivit/[place]/Iron/Folic Ac ( Plus Iron) 1 each PO DAILY [place] Last Admin: 02/20/19 08:08 Dose: 1 each Witch Gin (Tucks) 1 pad TOP ASDIRECTED PRN PRN Reason: Perineal Comfort Measure Last Admin: 02/18/19 17:28 Dose: 1 tub Discontinued Medications Acetaminophen (Tylenol) 650 mg PO Q6H PRN PRN Reason: Headache/Pain Last Admin: 02/18/19 11:23 Dose: 650 mg Bupivacaine HCl (Sensorcaine-Mpf 0.25%) 10 ml .ROUTE .STK-MED ONE Stop: 02/18/19 00:01 Carboprost Tromethamine (Hemabate Ds) Confirm Administered Dose 250 mcg .ROUTE .STK-MED ONE Stop: 02/18/19 14:45 Last Admin: 02/18/19 15:11 Dose: Not Given Carboprost Tromethamine (Hemabate Ds) 250 mcg IM ONETIME ONE Stop: 02/18/19 14:48 Last Admin: 02/18/19 14:46 Dose: 250 mcg Diphenhydramine HCl (Benadryl) 25 mg IVPUSH Q6H PRN PRN Reason: pruritis Diphenoxylate HCl/Atropine (Lomotil 0.025-2.5 Mg) 2 tab PO ONETIME ONE Stop: 02/18/19 14:48 Last Admin: 02/18/19 15:12 Dose: 2 tab Ephedrine Sulfate (Ephedrine Sulfate) 5 mg IVPUSH ASDIRECTED PRN PRN Reason: Hypotension Fentanyl (Sublimaze) 100 mcg EPIDUR Q3H PRN PRN Reason: Pain Last Admin: 02/18/19 03:12 Dose: 100 mcg Fentanyl/Bupivacaine HCl (Fentanyl/Bupivacaine/Ns 2 Mcg-0.125% 250 Ml) 250 ml EPIDUR CONTINUOUS PRN PRN Reason: Pain Last Admin: 02/18/19 03:13 Dose: 250 ml Ferrous Sulfate (Ferrous Sulfate) 324 mg PO WITHBREAKFAST [facility] Last Admin: 02/20/19 08:08 Dose: 324 mg Gentamicin Sulfate (Pharmacy To Dose - Gentamicin) 0 dose .XX ASDIRECTED PRN PRN Reason: RX TO DOSE GENTAMICIN Gentamicin Sulfate 410 mg/ (Sodium Chloride) 110.25 mls @ 220.5 mls/hr IV Q24H [facility] Last Admin: 02/17/19 15:47 Dose: 220.5 mls/hr Lactated Ringer's (Ringers, Lactated) 1,000 mls @ 999 mls/hr IV .BOLUS ONE Stop: 02/17/19 17:35 Last Admin: 02/17/19 17:19 Dose: 999 mls/hr Lactated Ringer's (Ringers, Lactated) 1,000 mls @ 100 mls/hr IV ASDIRECTED [facility] Last Admin: 02/18/19 08:10 Dose: 75 mls/hr Oxytocin/Lactated Ringer's (Pitocin In Lr 10 Units/1,000 Ml) 10 unit in 1,000 mls @ 12 mls/hr IV TITRATE [place]; Protocol Last Titration: 02/18/19 05:38 Dose: 18 munits/min, 108 mls/hr Oxytocin/Lactated Ringer's (Pitocin In Lr 10 Units/1,000 Ml) 10 unit in 1,000 mls @ 100 mls/hr IV .CONTINUOUS [facility] Magnesium Sulfate (Magnesium Sulfate In Water Premix) Confirm Administered Dose 40 gm in 1,000 mls @ as directed .ROUTE .STK-MED ONE Stop: 02/18/19 08:00 Last Admin: 02/18/19 08:31 Dose: Not Given Magnesium Sulfate (Magnesium Sulfate In Water Premix) 40 gm in 1,000 mls @ 50 mls/hr IV ASDIRECTED [place] Stop: 02/19/19 14:30 Last Admin: 02/19/19 03:51 Dose: 50 mls/hr Magnesium Sulfate 4 gm/ Premix 100 mls @ 300 mls/hr IV ONETIME ONE Stop: 02/18/19 08:03 Last Admin: 02/18/19 08:31 Dose: Not Given Magnesium Sulfate 4 gm/ Premix 50 mls @ 300 mls/hr IV ONETIME ONE Stop: 02/18/19 08:09 Last Admin: 02/18/19 11:44 Dose: Not Given Magnesium Sulfate 2 gm/ Premix 50 mls @ 50 mls/hr IV Q1H [place] Last Admin: 02/18/19 11:44 Dose: Not Given Magnesium Sulfate 4 gm/ Premix 50 mls @ 300 mls/hr IV ONETIME ONE Stop: 02/18/19 08:39 Last Admin: 02/18/19 08:10 Dose: 300 mls/hr Oxytocin/Lactated Ringer's (Pitocin In Lr 20 Units/1,000 Ml) 20 unit in 1,000 mls @ 54 mls/hr IV TITRATE [place]; Protocol Last Admin: 02/18/19 11:00 Dose: 54 mls/hr Labetalol HCl (Normodyne) Confirm Administered Dose 100 mg .ROUTE .STK-MED ONE Stop: 02/18/19 07:50 Last Admin: 02/18/19 07:53 Dose: 20 mg Labetalol HCl (Normodyne) 20 mg IVPUSH ONETIME ONE; Protocol Stop: 02/18/19 07:56 Last Admin: 02/18/19 08:31 Dose: Not Given Misoprostol (Cytotec) Confirm Administered Dose 1,000 mcg .ROUTE .STK-MED ONE Stop: 02/18/19 14:38 Last Admin: 02/18/19 14:50 Dose: Not Given Misoprostol (Cytotec) 1,000 mcg PO ONETIME STA Stop: 02/18/19 14:41 Last Admin: 02/18/19 14:39 Dose: 1,000 mcg Nalbuphine HCl (Nubain) 10 mg IVPUSH Q2H PRN PRN Reason: Pain
[2019-02-20] MEDS: Benzocaine/Menthol 20%-0.5% Spray 56 GM Canister TOP PRN (16:21)
[2019-02-20] MEDS ORDERED: Ferrous Sulfate 324 MG Tab.EC PO SCH (17:00)
== END 2019-02-20 16:45 | disposition home or self-care (01) | DRG 560 ==
LOC: JD.IVTHER 14:00 → JD.OB 14:08 → JD.IVTHER 20:25 → JD.OB 20:26 → OBSVTOIN 02-18 14:26 → JD.OB 02-18 15:04
PROVIDERS: ADMIT Obstetrics & Gynecology; ATTEND Obstetrics & Gynecology
PROC: 10E0XZZ Delivery of Products of Conception, External Approach (ICD-10-PCS; principal; 2019-02-18)
PROC: 10907ZC Drainage of Amniotic Fluid, Therapeutic from Products of Conception, Via Natural or Artificial Opening (ICD-10-PCS; 2019-02-18)
PROC: 3E033VJ Introduction of Other Hormone into Peripheral Vein, Percutaneous Approach (ICD-10-PCS; 2019-02-18)
PROC: 0KQM0ZZ Repair Perineum Muscle, Open Approach (ICD-10-PCS; 2019-02-18)
PROC: 3E0R3BZ Introduction of Anesthetic Agent into Spinal Canal, Percutaneous Approach (ICD-10-PCS; 2019-02-18)
DX: O76 Abnormality in fetal heart rate and rhythm complicating labor and delivery (principal); O14.04 Mild to moderate pre-eclampsia, complicating childbirth; O99.214 Obesity complicating childbirth; E66.9 Obesity, unspecified; O60.13X0 Preterm labor second trimester with preterm delivery third trimester, not applicable or unspecified; O99.02 Anemia complicating childbirth; D64.9 Anemia, unspecified; O99.345 Other mental disorders complicating the puerperium; F53.0 Postpartum depression; O70.1 Second degree perineal laceration during delivery; Z37.0 Single live birth; Z3A.36 36 weeks gestation of pregnancy; Z88.2 Allergy status to sulfonamides
CPT/HCPCS: 36415; 51702; 59025; 59409; 76816; 76819; 76819-26; 80053; 82570; 84156; 85025; 86592; 86850; 86900; 86901; A9270-GY; J1580; J2590; J3010; J3475; J3490; J7050; J7120